=== PATIENT | male | born 1960 | race African-American/Black ===

== ENCOUNTER → 2018-03-28 | Outpatient (CLI) | payer OTHER ==
[2018-03-28 13:14] LABS: HEMATOCRIT 25.7 % (37.9-51.0); HEMOGLOBIN 8.1 g/dL (13.5-17.0); MEAN CORPUSCULAR HEMOGLOBIN 18.3 pg (27.0-33.4); MEAN CORPUSCULAR HGB CONC 31.4 g/dL (32.0-36.0); PLATELET COUNT 180 10^3/uL (150-450); RED BLOOD COUNT 4.42 10^6/uL (4.35-5.55); RED CELL DISTRIBUTION WIDTH 16.9 % (11.5-14.0); WHITE BLOOD COUNT 6.6 10^3/uL (4.0-10.5)
[2018-03-28 13:15] LABS: APPEARANCE,URINE CLEAR; BILIRUBIN,URINE NEGATIVE (NEGATIVE); COLOR,URINE YELLOW; GLUCOSE, URINE NEGATIVE (NEGATIVE); KETONES,URINE NEGATIVE (NEGATIVE); LEUKOCYTE ESTERASE,URINE SMALL (NEGATIVE); NITRITE,URINE NEGATIVE (NEGATIVE); PROTEIN,URINE 100 mg/dL (NEGATIVE); UROBILINOGEN,URINE NEGATIVE mg/dL (<2.0)
[2018-03-28 13:25] LABS: MEAN CORPUSCULAR VOLUME 58 fl (80-97)
[2018-03-28 13:34] LABS: ALANINE AMINOTRANSFERASE 18 U/L (21-72); ALBUMIN 4.5 g/dL (3.5-5.0); ALKALINE PHOSPHATASE 43 U/L (38-126); ANION GAP 10 (5-19); ASPARTATE AMINO TRANSFERASE 15 U/L (17-59); BILIRUBIN,DIRECT 0.1 mg/dL (0.0-0.4); BILIRUBIN,TOTAL 0.5 mg/dL (0.2-1.3); BLOOD UREA NITROGEN 72 mg/dL (7-20); CALCIUM 8.9 mg/dL (8.4-10.2); CARBON DIOXIDE 22 mmol/L (22-30); CHLORIDE 109 mmol/L (98-107); GLUCOSE 86 mg/dL (75-110); PHOSPHORUS 6.2 mg/dL (2.5-4.5); POTASSIUM 5.6 mmol/L (3.6-5.0); SODIUM 140.6 mmol/L (137-145); TOTAL PROTEIN 6.7 g/dL (6.3-8.2)
[2018-03-28 14:34] LABS: ABSOLUTE LYMPHOCYTES# (MANUAL) 1.1 10^3/uL (0.5-4.7); ABSOLUTE MONOCYTES # (MANUAL) 0.1 10^3/uL (0.1-1.4); ABSOLUTE NEUTROPHILS# (MANUAL) 5.2 10^3/uL (1.7-8.2); BASOPHILS % (MANUAL) 0 % (0-2); EOSINOPHILS % (MANUAL) 2 % (0-6); LYMPHOCYTES % (MANUAL) 17 % (13-45); MONOCYTES % (MANUAL) 2 % (3-13); NUCLEATED RED BLOOD CELLS 1 /100 WBC (0); SEGMENTED NEUTROPHILS % (MAN) 79 % (42-78); TOTAL CELLS COUNTED 100
[2018-03-28 14:35] LABS: ANISOCYTOSIS 1+; HYPOCHROMASIA 2+; OVALOCYTES 2+; PLATELET COMMENT ADEQUATE; POIKILOCYTOSIS 3+; SCHISTOCYTES 1+; TEAR DROP CELLS 1+
[2018-03-28 14:36] LABS: ACANTHOCYTES SLIGHT; BURR CELLS SLIGHT
[2018-03-29 11:00] LABS: PATH REVIEW PATHOLOGIST REVIEWED
== END ==
LOC: OD 12:24
PROVIDERS: ATTEND Internal Medicine Nephrology
DX: N18.5 Chronic kidney disease, stage 5 (principal); M10.00 Idiopathic gout, unspecified site; E87.5 Hyperkalemia
CPT/HCPCS: 36415; 80053; 81001; 83970; 84100; 85025

== ENCOUNTER → 2018-03-31 | Outpatient (CLI) | payer OTHER | LOC: OD 12:47 | PROVIDERS: ATTEND Internal Medicine Nephrology | DX: E87.5 Hyperkalemia (principal) | CPT/HCPCS: 36415; 84132 ==

== ENCOUNTER → 2018-04-26 | Outpatient (CLI) | payer OTHER ==
[2018-04-26 13:21] LABS: HEMATOCRIT 24.6 % (37.9-51.0); MEAN CORPUSCULAR HEMOGLOBIN 18.6 pg (27.0-33.4); MEAN CORPUSCULAR HGB CONC 31.8 g/dL (32.0-36.0); PLATELET COUNT 189 10^3/uL (150-450); RED BLOOD COUNT 4.21 10^6/uL (4.35-5.55); RED CELL DISTRIBUTION WIDTH 16.7 % (11.5-14.0); WHITE BLOOD COUNT 5.8 10^3/uL (4.0-10.5)
[2018-04-26 13:38] LABS: ANION GAP 11 (5-19); BLOOD UREA NITROGEN 91 mg/dL (7-20); CALCIUM 8.9 mg/dL (8.4-10.2); CARBON DIOXIDE 21 mmol/L (22-30); CHLORIDE 107 mmol/L (98-107); GLUCOSE 83 mg/dL (75-110); IRON(TIBC) 66.8 ug/dL (49-181); PHOSPHORUS 7.3 mg/dL (2.5-4.5); POTASSIUM 5.6 mmol/L (3.6-5.0); SODIUM 139.1 mmol/L (137-145)
[2018-04-26 13:56] LABS: HEMOGLOBIN 7.8 g/dL (13.5-17.0)
[2018-04-26 13:57] LABS: MEAN CORPUSCULAR VOLUME 59 fl (80-97)
[2018-04-26 14:19] LABS: APPEARANCE,URINE CLEAR; BILIRUBIN,URINE NEGATIVE (NEGATIVE); COLOR,URINE YELLOW; GLUCOSE, URINE NEGATIVE (NEGATIVE); KETONES,URINE NEGATIVE (NEGATIVE); LEUKOCYTE ESTERASE,URINE NEGATIVE (NEGATIVE); NITRITE,URINE NEGATIVE (NEGATIVE); PROTEIN,URINE 100 mg/dL (NEGATIVE); URINE SPECIFIC GRAVITY 1.011; UROBILINOGEN,URINE NEGATIVE mg/dL (<2.0)
[2018-04-26 15:04] LABS: UR PRO/CREAT RATIO RESULT 0.7 mg/mg (0.0-0.2); URINE CREATININE 144.7 mg/dL (22-328); URINE PROTEIN 98.3 mg/dL (<12)
[2018-04-27 11:33] LABS: PATH REVIEW PATHOLOGIST REVIEWED
[2018-04-27 13:22] LABS: A/G RATIO 1.2 (0.7-1.7); ALBUMIN 2 3.6 g/dL (2.9-4.4); ALPHA-2-GLOBULIN 2 0.9 g/dL (0.4-1.0); BETA GLOBULINS 0.9 g/dL (0.7-1.3); GLOBULIN TOTAL 3.1 g/dL (2.2-3.9); MONOCLONAL SPIKE Not Observed g/dL (Not Observ); PROTEIN TOTAL SERUM 6.7 g/dL (6.0-8.5)
== END ==
LOC: OD 12:44
PROVIDERS: ATTEND Internal Medicine Nephrology
DX: N18.3 Chronic kidney disease, stage 3 (moderate) (principal); D63.1 Anemia in chronic kidney disease; E87.5 Hyperkalemia; R80.9 Proteinuria, unspecified
CPT/HCPCS: 36415; 80048; 81001; 82570; 82728; 83540; 83550; 83970; 84100; 84156; 84165; 85027

== ENCOUNTER → 2018-04-28 | Outpatient (CLI) | payer OTHER | LOC: OD 10:44 | PROVIDERS: ATTEND Internal Medicine Nephrology | DX: E87.5 Hyperkalemia (principal) | CPT/HCPCS: 36415; 84132 ==

== ENCOUNTER → 2018-05-17 | Outpatient (CLI) | payer OTHER ==
[2018-05-17 16:02] LABS: HEMATOCRIT 25.3 % (37.9-51.0); MEAN CORPUSCULAR HEMOGLOBIN 18.8 pg (27.0-33.4); MEAN CORPUSCULAR HGB CONC 31.8 g/dL (32.0-36.0); MEAN CORPUSCULAR VOLUME 59 fl (80-97); PLATELET COUNT 186 10^3/uL (150-450); RED BLOOD COUNT 4.28 10^6/uL (4.35-5.55); RED CELL DISTRIBUTION WIDTH 17.6 % (11.5-14.0); WHITE BLOOD COUNT 6.5 10^3/uL (4.0-10.5)
== END ==
LOC: OD 14:15
PROVIDERS: ATTEND Internal Medicine Nephrology
DX: N18.5 Chronic kidney disease, stage 5 (principal); D63.1 Anemia in chronic kidney disease
CPT/HCPCS: 36415; 85027

== ENCOUNTER → 2018-05-19 | Outpatient (CLI) | payer OTHER ==
[2018-05-19 16:27] LABS: HEMATOCRIT 24.4 % (37.9-51.0); MEAN CORPUSCULAR HEMOGLOBIN 18.4 pg (27.0-33.4); MEAN CORPUSCULAR VOLUME 59 fl (80-97); PLATELET COUNT 194 10^3/uL (150-450); RED BLOOD COUNT 4.11 10^6/uL (4.35-5.55); WHITE BLOOD COUNT 4.8 10^3/uL (4.0-10.5)
[2018-05-19 16:29] LABS: APPEARANCE,URINE CLEAR; BILIRUBIN,URINE NEGATIVE (NEGATIVE); COLOR,URINE YELLOW; GLUCOSE, URINE NEGATIVE (NEGATIVE); KETONES,URINE NEGATIVE (NEGATIVE); LEUKOCYTE ESTERASE,URINE NEGATIVE (NEGATIVE); NITRITE,URINE NEGATIVE (NEGATIVE); PROTEIN,URINE 100 mg/dL (NEGATIVE); URINE SPECIFIC GRAVITY 1.011; UROBILINOGEN,URINE NEGATIVE mg/dL (<2.0)
[2018-05-19 16:38] LABS: ALANINE AMINOTRANSFERASE 6 U/L (21-72); ALBUMIN 4.4 g/dL (3.5-5.0); ALKALINE PHOSPHATASE 41 U/L (38-126); ANION GAP 15 (5-19); ASPARTATE AMINO TRANSFERASE 11 U/L (17-59); BILIRUBIN,DIRECT 0.3 mg/dL (0.0-0.4); BILIRUBIN,TOTAL 0.6 mg/dL (0.2-1.3); BLOOD UREA NITROGEN 87 mg/dL (7-20); CALCIUM 9.2 mg/dL (8.4-10.2); CARBON DIOXIDE 19 mmol/L (22-30); CHLORIDE 106 mmol/L (98-107); GLUCOSE 115 mg/dL (75-110); IRON(TIBC) 85.1 ug/dL (49-181); PHOSPHORUS 6.4 mg/dL (2.5-4.5); POTASSIUM 4.9 mmol/L (3.6-5.0); SODIUM 139.8 mmol/L (137-145); TOTAL PROTEIN 6.6 g/dL (6.3-8.2)
[2018-05-19 17:36] LABS: HEMOGLOBIN 7.6 g/dL (13.5-17.0)
== END ==
LOC: OD 15:40
PROVIDERS: ATTEND Internal Medicine Nephrology
DX: N18.5 Chronic kidney disease, stage 5 (principal); E87.5 Hyperkalemia; D64.9 Anemia, unspecified
CPT/HCPCS: 36415; 80053; 81001; 82728; 83540; 83550; 83970; 84100; 85027

== ENCOUNTER 2018-07-07 07:55 | Outpatient (CLI) | payer OTHER ==
[~2018-07-07 07:55] MED LIST: FERRIC CARBOXYMALTOSE 750 MG in NORMAL SALINE 250 ML IV PRN
[2018-07-07 09:10] VITALS: BP 158/80
== END 2018-07-07 09:57 | disposition home or self-care (01) ==
LOC: II 07:55 → 5TH 08:00 → II 09:57
PROVIDERS: ATTEND Internal Medicine Nephrology
DX: D50.9 Iron deficiency anemia, unspecified (principal)
CPT/HCPCS: 96365; J7050; J1439

== ENCOUNTER 2018-07-14 07:47 | Outpatient (CLI) | payer OTHER ==
[2018-07-14 08:36] VITALS: BP 137/77
== END 2018-07-14 09:41 | disposition home or self-care (01) ==
LOC: II 07:47 → 5TH 07:50 → II 09:41
PROVIDERS: ATTEND Internal Medicine Nephrology
PROC: 3E033GC Introduction of Other Therapeutic Substance into Peripheral Vein, Percutaneous Approach (ICD-10-PCS; principal; 2018-07-14)
DX: D50.8 Other iron deficiency anemias (principal)
CPT/HCPCS: 96365; J7050; J1439

== ENCOUNTER → 2018-07-27 | Outpatient (CLI) | payer OTHER ==
[2018-07-27 12:52] LABS: ABSOLUTE BASOPHILS # (AUTO) 0.1 10^3/uL (0.0-0.2); ABSOLUTE EOSINOPHILS # (AUTO) 0.2 10^3/uL (0.0-0.6); ABSOLUTE LYMPHOCYTES (AUTO) 0.6 10^3/uL (0.5-4.7); ABSOLUTE MONOCYTES (AUTO) 0.4 10^3/uL (0.1-1.4); ABSOLUTE NEUT (AUTO) 4.3 10^3/uL (1.7-8.2); HEMATOCRIT 29.5 % (37.9-51.0); HEMOGLOBIN 8.9 g/dL (13.5-17.0); LYMPHOCYTES % (AUTO) 11.2 % (13-45); MEAN CORPUSCULAR HEMOGLOBIN 18.3 pg (27.0-33.4); MEAN CORPUSCULAR HGB CONC 30.3 g/dL (32.0-36.0); MEAN CORPUSCULAR VOLUME 61 fl (80-97); MONOCYTES % (AUTO) 7.1 % (3-13); PLATELET COUNT 199 10^3/uL (150-450); RED BLOOD COUNT 4.87 10^6/uL (4.35-5.55); RED CELL DISTRIBUTION WIDTH 19.3 % (11.5-14.0); SEGMENTED NEUTROPHILS % (AUTO) 76.7 % (42-78); TOTAL CELLS COUNTED % (AUTO) 100 %; WHITE BLOOD COUNT 5.6 10^3/uL (4.0-10.5)
[2018-07-27 13:11] LABS: APPEARANCE,URINE SLIGHTLY-CLOUDY; BILIRUBIN,URINE NEGATIVE (NEGATIVE); COLOR,URINE YELLOW; GLUCOSE, URINE NEGATIVE (NEGATIVE); KETONES,URINE NEGATIVE (NEGATIVE); LEUKOCYTE ESTERASE,URINE NEGATIVE (NEGATIVE); NITRITE,URINE NEGATIVE (NEGATIVE); PROTEIN,URINE 100 mg/dL (NEGATIVE); URINE SPECIFIC GRAVITY 1.012; UROBILINOGEN,URINE NEGATIVE mg/dL (<2.0)
[2018-07-27 13:12] LABS: ALANINE AMINOTRANSFERASE 19 U/L (21-72); ALBUMIN 4.3 g/dL (3.5-5.0); ALKALINE PHOSPHATASE 36 U/L (38-126); ANION GAP 15 (5-19); ASPARTATE AMINO TRANSFERASE 14 U/L (17-59); BILIRUBIN,DIRECT 0.3 mg/dL (0.0-0.4); BILIRUBIN,TOTAL 0.5 mg/dL (0.2-1.3); BLOOD UREA NITROGEN 93 mg/dL (7-20); CALCIUM 10.2 mg/dL (8.4-10.2); CARBON DIOXIDE 22 mmol/L (22-30); CHLORIDE 105 mmol/L (98-107); GLUCOSE 82 mg/dL (75-110); IRON(TIBC) 70.7 ug/dL (49-181); PHOSPHORUS 7.7 mg/dL (2.5-4.5); POTASSIUM 4.8 mmol/L (3.6-5.0); SODIUM 142.3 mmol/L (137-145)
[2018-07-27 13:16] LABS: ANISOCYTOSIS 2+; HYPOCHROMASIA 3+; OVALOCYTES 2+; PLATELET COMMENT ADEQUATE; PLATELET LARGE PRESENT; POIKILOCYTOSIS 2+; SCHISTOCYTES 2+; TARGET CELLS SLIGHT
[2018-07-27 13:33] LABS: UR PRO/CREAT RATIO RESULT 0.7 mg/mg (0.0-0.2); URINE CREATININE 242.3 mg/dL (22-328); URINE PROTEIN 163.1 mg/dL (<12)
== END ==
LOC: OD 12:21
PROVIDERS: ATTEND Internal Medicine Nephrology
DX: I12.0 Hypertensive chronic kidney disease with stage 5 chronic kidney disease or end stage renal disease (principal); N18.5 Chronic kidney disease, stage 5; E87.5 Hyperkalemia; D64.0 Hereditary sideroblastic anemia
CPT/HCPCS: 36415; 80053; 81001; 82570; 82728; 83540; 83550; 83970; 84100; 84156; 85025

== ENCOUNTER → 2018-09-08 | Outpatient (CLI) | payer OTHER ==
[2018-09-08 12:06] LABS: HEMATOCRIT 27.8 % (37.9-51.0); HEMOGLOBIN 8.6 g/dL (13.5-17.0); MEAN CORPUSCULAR HEMOGLOBIN 18.7 pg (27.0-33.4); MEAN CORPUSCULAR HGB CONC 30.9 g/dL (32.0-36.0); MEAN CORPUSCULAR VOLUME 61 fl (80-97); PLATELET COUNT 185 10^3/uL (150-450); RED BLOOD COUNT 4.59 10^6/uL (4.35-5.55); RED CELL DISTRIBUTION WIDTH 19.4 % (11.5-14.0); WHITE BLOOD COUNT 5.9 10^3/uL (4.0-10.5)
[2018-09-08 12:22] LABS: ANION GAP 14 (5-19); CALCIUM 9.7 mg/dL (8.4-10.2); CARBON DIOXIDE 22 mmol/L (22-30); CHLORIDE 104 mmol/L (98-107); GLUCOSE 86 mg/dL (75-110); POTASSIUM 4.5 mmol/L (3.6-5.0)
[2018-09-08 12:29] LABS: BLOOD UREA NITROGEN 119 mg/dL (7-20)
== END ==
LOC: OD 11:27
PROVIDERS: ATTEND Internal Medicine Nephrology
DX: I12.0 Hypertensive chronic kidney disease with stage 5 chronic kidney disease or end stage renal disease (principal); N18.5 Chronic kidney disease, stage 5; N25.0 Renal osteodystrophy; D63.1 Anemia in chronic kidney disease; E87.2 Acidosis
CPT/HCPCS: 36415; 80048; 83735; 83970; 84100; 85027

== ENCOUNTER 2018-09-19 00:43 | Emergency (ER) | payer OTHER ==
[2018-09-19 00:57] VITALS: BP 178/92
== END 2018-09-19 04:46 | disposition left against medical advice (07) ==
LOC: ER 00:43
DX: Z53.21 Procedure and treatment not carried out due to patient leaving prior to being seen by health care provider (principal)

== ENCOUNTER → 2018-09-19 | Outpatient (CLI) | payer OTHER ==
[2018-09-19 12:29] LABS: ABSOLUTE EOSINOPHILS # (AUTO) 0.3 10^3/uL (0.0-0.6); ABSOLUTE LYMPHOCYTES (AUTO) 1.1 10^3/uL (0.5-4.7); ABSOLUTE MONOCYTES (AUTO) 0.5 10^3/uL (0.1-1.4); ABSOLUTE NEUT (AUTO) 4.2 10^3/uL (1.7-8.2); BASOPHILS % (AUTO) 0.6 % (0-2); EOSINOPHILS % (AUTO) 4.5 % (0-6); HEMATOCRIT 27.7 % (37.9-51.0); HEMOGLOBIN 8.6 g/dL (13.5-17.0); LYMPHOCYTES % (AUTO) 17.7 % (13-45); MEAN CORPUSCULAR HEMOGLOBIN 18.8 pg (27.0-33.4); MEAN CORPUSCULAR VOLUME 61 fl (80-97); MONOCYTES % (AUTO) 8.8 % (3-13); PLATELET COUNT 190 10^3/uL (150-450); RED BLOOD COUNT 4.56 10^6/uL (4.35-5.55); RED CELL DISTRIBUTION WIDTH 19.8 % (11.5-14.0); SEGMENTED NEUTROPHILS % (AUTO) 68.4 % (42-78); TOTAL CELLS COUNTED % (AUTO) 100 %; WHITE BLOOD COUNT 6.1 10^3/uL (4.0-10.5)
[2018-09-19 12:47] LABS: ALBUMIN 4.5 g/dL (3.5-5.0); ANION GAP 15 (5-19); BLOOD UREA NITROGEN 115 mg/dL (7-20); CALCIUM 10.6 mg/dL (8.4-10.2); CARBON DIOXIDE 22 mmol/L (22-30); CHLORIDE 101 mmol/L (98-107); GLUCOSE 83 mg/dL (75-110); IRON(TIBC) 42.5 ug/dL (49-181); PHOSPHORUS 8.7 mg/dL (2.5-4.5); POTASSIUM 4.3 mmol/L (3.6-5.0); SODIUM 137.6 mmol/L (137-145)
[2018-09-19 12:48] LABS: ANISOCYTOSIS 2+; HYPOCHROMASIA 3+; POLYCHROMASIA SLIGHT
[2018-09-19 12:49] LABS: OVALOCYTES 2+; PLATELET COMMENT ADEQUATE; POIKILOCYTOSIS 3+; SCHISTOCYTES 1+; TARGET CELLS SLIGHT; TEAR DROP CELLS 1+
[2018-09-20 07:37] LABS: HEPATITIS BE ANTIGEN Negative (Negative); HEPATITIS C VIRUS AB <0.1 s/co ratio (0.0-0.9); HEPATITS B SURFACE ANTIGEN Negative (Negative)
[2018-09-20 11:33] LABS: HEPATITIS B CORE AB TOT Negative (Negative); HEPATITIS B SURFACE AB QUANT 272.1 mIU/mL (Immunity>9)
== END ==
LOC: OD 11:17
PROVIDERS: ATTEND Internal Medicine Nephrology
DX: I12.0 Hypertensive chronic kidney disease with stage 5 chronic kidney disease or end stage renal disease (principal); N18.5 Chronic kidney disease, stage 5; R80.9 Proteinuria, unspecified; E87.5 Hyperkalemia; E87.2 Acidosis; D63.1 Anemia in chronic kidney disease; N25.0 Renal osteodystrophy
CPT/HCPCS: 36415; 80069; 82728; 83540; 83550; 84466; 85025; 86317; 86704; 86803; 86804; 87340; 87350

== ENCOUNTER 2018-09-21 07:18 | Day surgery (SDC) | payer OTHER ==
[~2018-09-21 07:18] MED LIST changes: +CEFAZOLIN 1 GM/D5W RTU 1 GM/50 ML RTUPB IV ONE; +CEFAZOLIN 1 GM/D5W RTU 1 GM/50 ML RTUPB IV PRN; -FERRIC CARBOXYMALTOSE 750 MG in NORMAL SALINE 250 ML IV PRN
[2018-09-21 08:21] LABS: ABSOLUTE EOSINOPHILS # (AUTO) 0.2 10^3/uL (0.0-0.6); ABSOLUTE LYMPHOCYTES (AUTO) 0.8 10^3/uL (0.5-4.7); ABSOLUTE MONOCYTES (AUTO) 0.5 10^3/uL (0.1-1.4); ABSOLUTE NEUT (AUTO) 4.1 10^3/uL (1.7-8.2); BASOPHILS % (AUTO) 0.9 % (0-2); EOSINOPHILS % (AUTO) 4.1 % (0-6); HEMATOCRIT 27.5 % (37.9-51.0); HEMOGLOBIN 8.6 g/dL (13.5-17.0); LYMPHOCYTES % (AUTO) 14.8 % (13-45); MEAN CORPUSCULAR HEMOGLOBIN 18.8 pg (27.0-33.4); MEAN CORPUSCULAR HGB CONC 31.1 g/dL (32.0-36.0); MEAN CORPUSCULAR VOLUME 61 fl (80-97); MONOCYTES % (AUTO) 8.9 % (3-13); PLATELET COUNT 155 10^3/uL (150-450); RED BLOOD COUNT 4.55 10^6/uL (4.35-5.55); RED CELL DISTRIBUTION WIDTH 20.1 % (11.5-14.0); SEGMENTED NEUTROPHILS % (AUTO) 71.3 % (42-78); TOTAL CELLS COUNTED % (AUTO) 100 %; WHITE BLOOD COUNT 5.7 10^3/uL (4.0-10.5)
[2018-09-21 08:34] LABS: ANION GAP 15 (5-19); BLOOD UREA NITROGEN 118 mg/dL (7-20); CARBON DIOXIDE 22 mmol/L (22-30); CHLORIDE 102 mmol/L (98-107); GLUCOSE 95 mg/dL (75-110); POTASSIUM 4.2 mmol/L (3.6-5.0); SODIUM 138.7 mmol/L (137-145)
[2018-09-21 08:42] LABS: PLATELET COMMENT ADEQUATE; POIKILOCYTOSIS 2+
[2018-09-21 08:43] LABS: ANISOCYTOSIS 2+; OVALOCYTES 2+; TEAR DROP CELLS SLIGHT
[2018-09-21 08:44] LABS: TARGET CELLS 1+
--- NOTE | 2018-09-21 08:57 | EKG REPORT ---
SEVERITY:- ABNORMAL ECG - SINUS BRADYCARDIA 56. PROBABLE LEFT VENTRICULAR HYPERTROPHY NONSPECIFIC ST-T CHANGES LATERAL LEADS : Confirmed by: Seferino Stern MD 21-Sep-2018 08:56:22
[2018-09-21] MEDS ORDERED: FENTANYL CITRATE INJ/PF 100 MCG/2 ML AMPUL ONE (11:00)
[2018-09-21] MEDS ORDERED: MORPHINE SULFATE 10 MG/ML INJ ONE (11:01)
[2018-09-21] MEDS ORDERED: ONDANSETRON HCL INJ/PF 4 MG/2 ML SDV ONE (11:01)
[2018-09-21] MEDS ORDERED: MIDAZOLAM 2 MG/2 ML INJ ONE (11:01)
[2018-09-21] MEDS ORDERED: PROPOFOL INJ 200 MG/20 ML VIAL IV ONE (11:01)
[2018-09-21] MEDS ORDERED: DEXAMETHASONE SOD PHOSPHATE INJ 4 MG/1 ML VIAL ONE (11:01)
[2018-09-21] MEDS ORDERED: BACITRACIN INJ 50,000 UNIT VIAL ONE (11:05)
[2018-09-21] MEDS ORDERED: LIDOCAINE 0.5% INJ-PF (5 MG/ML) 50 ML SDV ONE (11:05)
[2018-09-21] MEDS ORDERED: BUPIVACAINE HCL 0.25 % INJ/PF (2.5 MG/1 ML) 30 ML VIAL ONE (11:05)
[2018-09-21] MEDS ORDERED: HEPARIN SOD (PORCINE) 1,000 UNIT/ML 10 ML VIAL ONE (11:23)
[2018-09-21] MEDS ORDERED: MORPHINE SULFATE 10 MG/ML INJ IV PRN (11:56)
[2018-09-21] MEDS ORDERED: DIPHENHYDRAMINE HCL 50 MG/ML VIAL IV PRN (11:56)
[2018-09-21] MEDS ORDERED: FENTANYL CITRATE INJ/PF 100 MCG/2 ML AMPUL IV PRN ×3 (11:56)
[2018-09-21] MEDS ORDERED: MEPERIDINE HCL/PF INJ 25 MG/1 ML DISP.SYRIN IV PRN (11:56)
[2018-09-21] MEDS ORDERED: PROMETHAZINE HCL INJ 25 MG/1 ML VIAL IV PRN ×2 (11:56)
[2018-09-21] MEDS ORDERED: GLYCOPYRROLATE 1 MG/5 ML VIAL ONE (12:02)
[2018-09-21] MEDS ORDERED: ROCURONIUM BROMIDE INJ 50 MG/5 ML VIAL IV ONE (12:02)
[2018-09-21] MEDS ORDERED: SUCCINYLCHOLINE CHLORIDE INJ 200 MG/10 ML VIAL ONE (12:02)
--- NOTE | 2018-09-21 13:13 | Discharge Summary ---
Discharge Summary (SDC) - Discharge Final Diagnosis: #1 end-stage renal disease needing dialysis. 2. Depression. 3. Beta thalassemia. 4. Hypertension. Date of Surgery: 09/21/18 Discharge Date: 09/21/18 Condition: Good Treatment or Instructions: Discharge home [after recovery per ASU criteria]. Diet , [renal],as tolerated, when fully awake advance as tolerated. Activities within moderation encouraged. Follow up in my office by appointment in about [1 week]. Call for appointment. Leave wounds [covered], [keep clean and dry, until office visit in 1 week]. Hold of on school/work [until evaluation in office]. Meds per med rec. Percocet. May shower [in 48 hrs], [try to keep operated area as dry as possible]. Prescriptions: Oxycodone HCl/Acetaminophen [Percocet 5-325 mg Tablet] 1 tab PO ASDIR PRN #15 tab PRN Reason: Referrals: OMI MAZARIEGOS MD [Primary Care Provider] - Discharge Diet: Other (Comments) - Renal. Respiratory Treatments at Home: Deep Breathing/Coughing Discharge Activity: Activity As Tolerated Report the Following to Your Physician Immediately: Shortness of Breath, Unusual Bleeding
--- NOTE | 2018-09-21 13:19 | Operative Report ---
Operative Report DATE OF SURGERY: 09/21/18 PREOPERATIVE DIAGNOSIS: #1 end-stage renal disease needing dialysis. 2. Depre ssion. 3. Beta thalassemia. 4. Hypertension. POSTOPERATIVE DIAGNOSIS: #1 end-stage renal disease needing dialysis. 2. Depression. 3. Beta thalassemia. 4. Hypertension. OPERATION: 1. Laparoscopic abdominal exploration. 2. Insertion of peritoneal dialysis catheter under laparoscopic guidance. SURGEON: KAREN HUANG BREAD DISTRIBUTOR: None. ANESTHESIA: GA TISSUE REMOVED OR ALTERED: Not applicable. COMPLICATIONS: None. ESTIMATED BLOOD LOSS: 10 mL. INTRAOPERATIVE FINDINGS: Of satisfactory and safe access into the peritoneal cavity. The catheter placement was well down in the pelvis. Easy ingress of 1 L of heparinized solution and egress of about 700 mils. 2-300 mils left intentionally. Exploration of the abdomen showed considerable fat in the sigmoid epiploicae. The omentum was actually relatively small and well out of the pelvis. PROCEDURE: After obtaining informed consent and going over the procedure with [the patient and his family], he was taken to the operating room, [he was] anesthetized and intubated. The abdomen was prepped and draped in the usual sterile fashion. After the universal timeout, in which it was verified that the patient received IV antibiotic, the procedure commenced. The topographical location for the peritoneal dialysis catheter was sketched by applying it to the anterior abdominal wall. The reference point was the pubic symphysis the coil of the catheter, just beneath this level. In this way the position for the cuffs and the external catheter exit were ascertained and marked. The catheter was now replaced in antibiotic containing solution. An entry into the abdomen was sketched just to the right of the midline and transversely in the epigastrium. Local anesthesia was infiltrated. A 1.5 cm, transverse incision was made with a [15 blade scalpel]. Dissection now proceeded to the medial aspect of the right rectus sheath. This was opened and the muscle gently reflected. The posterior rectus sheath and peritoneum were opened between hemostats and entry was gained to the peritoneal cavity. This allowed introduction of a 5 mm laparoscopic port. The abdomen was now ins ufflated with carbon dioxide up to a maximum pressure of 12 mm of mercury. The camera was inserted and a good view gained of the abdomen. Photographs were taken. Local anesthesia was now infiltrated and an incision made in respect to the curve of the catheter. A 1 cm transverse incision was made at this point and dissection proceeded down to the rectus sheath. This was opened and a Veress needle on a reducing sleeve were were now introduced through the rectus muscle and the manipulated down to about 4 cm inferior to the incision. The peritoneum was now entered and the Veress needle removed. The internal cannula was now placed under direct vision. A swan neck peritoneal dialysis catheter was now placed on a stylette. Great care was taken to keep the orientation in reference to the white line on the catheter. It was now inserted into the peritoneal cavity under direct vision, through the introducer. As the catheter entered the abdomen the stylette was slowly withdrawn allowing it to assume its normal orientation and shape within the peritoneal cavity. Both the stylet and introducer were removed so as to place the internal cuff about 3 cm from the entry point of the peritoneal cavity, and within the rectus sheath. This was verified with respect to the incision. The external curve of the catheter was allowed to form precisely at the level of the incision. Externally the catheter was affixed to a Luna stylette which was now used to tunnel the catheter in the subcutaneous tissues to its exit site where it was now used to exit the skin about 2.5 cm from the external cuff. The catheter orientation and position and, particularly the 2 cuffs of the catheter were verified. Once this was done the external portion of the catheter was affixed to a Leur lock adapter and connected to a sterile IV tubing. This allowed introduction of 1 L of heparinized saline into the peritoneal cavity via the catheter. This occurred with brisk and free flow of fluid into the peritoneal cavity. Once the entire liter had been infused, the bag was now placed beneath the level of the patient and very satisfactory outflow was observed. With this in place, the camera and the catheter were removed and abdomen desufflated. The subcutaneous tissue in each incision was closed with interrupted 3-0 PDS. The skin in each incision was closed using interrupted and continuous sutures of 4-0 Monocryl. Once about 700 mils of the Infusaid had been passively removed from the abdomen, the catheter was flushed with 10 mL of heparinized solution and capped. The bio a patch was applied at the exit site. Benzoin was applied and Steri-Strips used to reinforce each of the wounds. It was also used to help anchor the Biopatch. It was also used to anchor the main catheter so that any external pressure would not dislodge the catheter. Dry gauze and tape applied and the procedure concluded.
[2018-09-21 15:11] VITALS: BP 134/85
== END 2018-09-21 14:55 | disposition home or self-care (01) ==
LOC: OROUT 07:18
PROVIDERS: ATTEND Surgery
DX: I12.0 Hypertensive chronic kidney disease with stage 5 chronic kidney disease or end stage renal disease (principal); N18.6 End stage renal disease; E78.5 Hyperlipidemia, unspecified; F32.9 Major depressive disorder, single episode, unspecified; M10.9 Gout, unspecified; D56.1 Beta thalassemia; R01.1 Cardiac murmur, unspecified; D64.9 Anemia, unspecified; E66.9 Obesity, unspecified; Z87.891 Personal history of nicotine dependence; Z79.82 Long term (current) use of aspirin; Z79.899 Other long term (current) drug therapy; E53.9 Vitamin B deficiency, unspecified
CPT/HCPCS: 36415; 82962; 85025; 80048; 93005; 93010; 00790; 49324; J2250; J3490 ×4; J0690; J1100; J3010; J1644; J2270; J0330; J2405; J2704; J1642; 790

== ENCOUNTER 2018-09-28 15:58 | Emergency (ER) | payer OTHER ==
[2018-09-28] MEDS ORDERED: LIDOCAINE 5% (700 MG) TRANSDERMAL ADH..PATCH TP ONE (17:00)
[2018-09-28] MEDS ORDERED: ACETAMINOPHEN 325 MG TABLET PO ONE (17:00)
--- NOTE | 2018-09-28 17:07 | ER Document Report ---
ED Neck/Back Problem - General Chief Complaint: Hip Pain Stated Complaint: LEFT LEG PAIN Time Seen by Provider: 09/28/18 17:00 Primary Care Provider: OMI MAZARIEGOS MD [Primary Care Provider] - Follow up as needed Mode of Arrival: Ambulatory Information source: Patient Notes: 58-year-old male presents to ED for complaint of low back pain radiating across the left buttocks and down the left leg. He states he has a history of chronic back pain but this pain going across his buttocks and down his leg started about 2 weeks ago. He states he is also just recently got a peritoneal dialysis catheter placed so that he can start on peritoneal dialysis at home. Patient denies any loss of control of bowel bladder, no saddle anesthesia, loss of sensation or control of lower extremities. He states he continues to have the low back pain also. TRAVEL OUTSIDE OF THE [place] IN LAST 30 DAYS: No - HPI Patient complains to provider of: Pain, Lower back - Radiating across the left buttocks and down the left leg Onset: Other - Chronic low back pain sciatic pain started 2 weeks ago Onset: Chronic Timing: Still present Quality of pain: Burning, Sharp Severity: Moderate Pain Level: 3 Recent injury: No Associated symptoms: Radiation to leg, Lower back pain Exacerbated by: Nothing Relieved by: Nothing Similar symptoms previously: Yes Recently seen / treated by doctor: Yes - Related Data Allergies/Adverse Reactions: No Known Allergies Allergy (Verified 09/28/18 16:13) Past Medical History - General Information source: Patient - Social History Smoking Status: Former Smoker Chew tobacco use (# tins/day): No Frequency of alcohol use: None Drug Abuse: None Lives with: Family Family History: Hyperlipidemia, Hypertension Patient has suicidal ideation: No Patient has homicidal ideation: No - Past Medical History Cardiac Medical History: Reports: Hx Hypercholesterolemia, Hx Hypertension Pulmonary Medical History: Reports: None EENT Medical History: Reports: None Neurological Medical History: Reports: None Endocrine Medical History: Reports: None. Denies: Hx Diabetes Mellitus Type 1, Hx Diabetes Mellitus Type 2 Renal/ Medical History: Reports: Hx End Stage Renal Disease, Hx Kidney Stones - 5 or 10 years ago, Hx Peritoneal Dialysis, Hx Renal Insufficiency - Patient does not know what his baseline creatinine is Malignancy Medical History: Reports None GI Medical History: Reports: None Musculoskeletal Medical History: Reports Hx Arthritis - knees, Reports Hx Gout Skin Medical History: Reports None Psychiatric Medical History: Reports: Hx Depression Traumatic Medical History: Reports: None Infectious Medical History: Reports: None Past Surgical History: Reports: Hx Kidney (Renal Surgery), Hx Orthopedic Surgery - Carpal tunnel release right wrist. Gout surgery on both feet. - Immunizations Hx Diphtheria, Pertussis, Tetanus Vaccination: Yes Review of Systems - Review of Systems Constitutional: No symptoms reported EENT: No symptoms reported Cardiovascular: No symptoms reported Respiratory: No symptoms reported Gastrointestinal: No symptoms reported Genitourinary: No symptoms reported Male Genitourinary: No symptoms reported Musculoskeletal: Back pain - Radiates down the left leg Skin: No symptoms reported Hematologic/Lymphatic: No symptoms reported Neurological/Psychological: No symptoms reported -: Yes All other systems reviewed and negative Physical Exam - Vital signs Vitals: Temp Pulse Resp BP Pulse Ox 97.9 F 60 20 150/83 H 98 09/28/18 16:18 09/28/18 16:18 09/28/18 16:18 09/28/18 16:18 09/28/18 16:18 Interpretation: Normal - General General appearance: Appears well, Alert - HEENT Head: Normocephalic, Atraumatic Eyes: Normal Pupils: PERRL - Respiratory Respiratory status: No respiratory distress Chest status: Nontender Breath sounds: Normal Chest palpation: Normal - Cardiovascular Rhythm: Regular Heart sounds: Normal auscultation Murmur: No - Abdominal Inspection: Normal Distension: No distension Bowel sounds: Normal Tenderness: Nontender. No: Tender - No pulsating masses Organomegaly: No organomegaly. No: Mass - Back Back: Normal, Tender, Vertebra tenderness Notes: No signs or symptoms of cauda equina, no loss control of bowel bladder, no saddle anesthesia, no loss of control or sensation to the lower extremities. - Extremities General upper extremity: Normal inspection, Nontender, Normal color, Normal ROM, Normal temperature General lower extremity: Normal inspection, Nontender, Normal color, Normal ROM, Normal temperature, Normal weight bearing. No: Francisco's sign - Neurological Neuro grossly intact: Yes Cognition: Normal Orientation: AAOx4 Caesar Coma Scale Eye Opening: Spontaneous [place] Coma Scale Verbal: Oriented Caesar Coma Scale Motor: Obeys Commands [place] Coma Scale Total: 15 Speech: Normal Motor strength normal: LUE, RUE, LLE, RLE Sensory: Normal - Psychological Associated symptoms: Normal affect, Normal mood - Skin Skin Temperature: Warm Skin Moisture: Dry Skin Color: Normal Course - Re-evaluation Re-evalutation: 09/28/18 17:39 X-ray report discussed with patient and written report given to patient to follow-up with his primary care doctor. His x-rays showed arthritis, degene rative disc disease and spondylisis the patient was treated with Tylenol and a Lidoderm patch. He was given a prescription for the Lidoderm patches. He was instructed on use of ice packs warm packs and back exercises. He was instructed to follow-up with his primary care doctor for further treatment. Patient was discharged home. Patient verbalized understanding and agreement with treatment plan. After performing a Medical Screening Examination, I estimate there is LOW risk for EXPANDING OR RUPTURED ABDOMINAL AORTIC ANEURYSM, CAUDA EQUINA SYNDROME, EPIDURAL MASS LESION, or HERNIATED DISK CAUSING SEVERE SPINAL STENOSIS, thus I consider the discharge disposition reasonable. I have reevaluated this patient multiple times and no significant life threatening changes are noted. The patient and I have discussed the diagnosis and risks, and we agree with discharging home and close follow-up. We also discussed returning to the Emergency Department immediately if new or worsening symptoms occur with the understanding that symptoms and presentations can change. We have discussed the symptoms which are most concerning (e.g., saddle anesthesia, urinary or bowel incontinence or retention, changing or worsening pain) that necessitate immediate return. - Vital Signs Vital signs: Temp Pulse Resp BP Pulse Ox 97.9 F 60 20 150/83 H 98 09/28/18 16:18 09/28/18 16:18 09/28/18 16:18 09/28/18 16:18 09/28/18 16:18 - Diagnostic Test Radiology reviewed: Image reviewed, Reports reviewed Discharge - Discharge Clinical Impression: Low back pain Qualifiers: Chronicity: chronic Back pain laterality: bilateral Sciatica presence: with sciatica Sciatica laterality: sciatica of left side Qualified Code(s): M54.42 - Lumbago with sciatica, left side; G89.29 - Other chronic pain Condition: Stable Disposition: HOME, SELF-CARE Additional Instructions: LOW BACK PAIN: Three out of every four people will have an episode of disabling back pain during their lifetime. Most commonly the pain is due to straining of the muscles and ligaments in the low back. Usual treatment includes: (1) Rest on a firm surface. Avoid lying on your stomach. (2) Ice pack the painful area. After a few days, gentle heat may be used int ermittently to relax the area, or ice packs can be continued. (3) Medication may be needed -- muscle relaxers and antiinflammatory medicines are commonly used. (4) As the back improves, exercises are prescribed to strengthen the back and abdominal muscles. Your doctor will advise you on the proper care for your back at each stage in your recovery. You may be better in a few days -- or healing may take several weeks. If new symptoms of a "herniated disc" (radiation of pain, numbness, or tingling down the back of the leg or weakness in the leg) occur, you should be re-examined. Further testing may be necessary. ICE PACKS: Apply ice packs frequently against the painful area. Many different schedules are recommended, such as "20 minutes on, 20 minutes off" or "one hour ice, two hours rest." If you need to work, you may need to go longer between ice treatments. You should plan to have the area ice packed AT LEAST one fourth of the time. The ice should be applied over the wrap, tape, or splint, or over a layer of cloth -- not directly against the skin. Some ice bags have a built-in cloth and can be put directly on the skin. WARM PACKS: After approximately two days, apply gentle heat (such as a heating pad or hot water bottle) for about 20 to 30 minutes about every two hours -- at least four times daily. Warmth and elevation will help you make a more rapid recovery, and will ease the pain considerably. Do not use HOT heat, and never apply heat for longer than 30 minutes. The continuous heat can invisibly damage skin and muscles -- even when no burn is seen on the surface. Damaged muscles can make you MORE sore. Acetaminophen Acetaminophen may be taken for pain relief or fever control. It's much safer than aspirin, offering a wider range of "safe" dosages. It is safe during . Some brand names are Tylenol, Panadol, Datril, Anacin 3, Tempra, and Liquiprin. Acetaminophen can be repeated every four hours. The following are maximum recommended dosages: WEIGHT Dose Drops Elixir Chewable(80mg) (LBS.) drprs=droppers tsp=teaspoon 6 40 mg .4 ml (1/2) 6-11 80 mg .8 ml (full) 1/2 tsp 1 tab 12-16 120 mg 1 1/2 drprs 3/4 tsp 1 1/2 tabs 17-23 160 mg 2 drprs 1 tsp 2 tabs 24-30 240 mg 3 drprs 1 1/2 tsp 3 tabs 30-35 320 mg 2 tsp 4 tabs 36-41 360 mg 2 1/4 tsp 4 1/2 tabs 42-47 400 mg 2 1/2 tsp 5 tabs 48-53 480 mg 3 tsp 6 tabs 54-59 520 mg 3 1/4 tsp 6 1/2 tabs 60-64 560 mg 3 1/2 tsp 7 tabs 65-70 600 mg 3 3/4 tsp 7 1/2 tabs 71-76 640 mg 4 tsp 8 tabs 77-82 720 mg 4 1/2 tsp 9 tabs 83-88 800 mg 5 tsp 10 tabs >89 pounds or adults 650 mg to 900 mg Acetaminophen can be repeated every four hours. Maximum daily dose not to exceed 4000 mg. These maximum recommended dosages are slightly higher than the dosages written on the product container, but these dosages are very safe and well below the toxic dosage for acetaminophen. Stretching Exercises for the Back The physician has recommended that you begin stretching exercises for your back. These are often used even while the back is painful. However, you should notify the physician if the activities seem to increase your pain. PELVIC TILT: Lie flat on your back with knees bent. Tighten your stomach and buttock muscles so it flattens your lower back against the floor. Hold 10 seconds. Repeat 10 times, twice daily. KNEE RAISE: Lying on the back with knees bent, raise one knee to your chest, then the other. Hold both knees against the chest 10 seconds, then lower one knee at a time. Repeat 10 times, twice daily. PARTIAL TRUNK RAISE: Lie face down, arms at your sides. Keeping your waist on the floor, use your arms raise your chest up. Support yourself on your elbows for 30 seconds. Repeat twice daily, increasing the time to two minutes as you recover. FOLLOW-UP CARE: If you have been referred to a physician for follow-up care, call the physicians office for an appointment as you were instructed or within the next two days. If you experience worsening or a significant change in your symptoms, notify the physician immediately or return to the Emergency Department at any time for re-evaluation. Prescriptions: Lidocaine [Lidoderm 5% (700 mg) Transdermal Patch] 1 patch TP DAILY #30 adh..patch Forms: Elevated Blood Pressure Referrals: OMI MAZARIEGOS MD [Primary Care Provider] - Follow up in 3-5 days
--- NOTE | 2018-09-28 17:29 | RADIOLOGY REPORT (SQ) ---
EXAM DESCRIPTION: L SPINE WHOLE COMPLETED DATE/TIME: 09/28/2018 5:12 pm REASON FOR STUDY: low back pain with sciatica COMPARISON: None. NUMBER OF VIEWS: Five views including obliques. TECHNIQUE: AP, lateral, oblique, and sacral radiographic images acquired of the lumbar spine. LIMITATIONS: None. FINDINGS: MINERALIZATION: Normal. SEGMENTATION: Normal. No transitional anatomy. ALIGNMENT: Normal. VERTEBRAE: Maintained height. No fracture or worrisome bone lesion. DISCS: Disc spaces are narrowed from L3-S1. Small marginal osteophytes present. POSTERIOR ELEMENTS: Pedicles and facets are intact. No pars defect or posterior arch defects. HARDWARE: None in the spine. PARASPINAL SOFT TISSUES: Normal. PELVIS: Intact as visualized. No fractures or worrisome bone lesions. SI joints intact. OTHER: No other significant finding. IMPRESSION: Degenerative disc disease and spondylosis. TECHNICAL DOCUMENTATION: JOB ID: [id number] [employer]- All Rights Reserved Reading location - IP/workstation name: [email or web address]
[2018-09-28 17:38] VITALS: BP 168/85
== END 2018-09-28 17:40 | disposition home or self-care (01) ==
LOC: ER 15:58
DX: M54.42 Lumbago with sciatica, left side (principal); E78.00 Pure hypercholesterolemia, unspecified; I12.0 Hypertensive chronic kidney disease with stage 5 chronic kidney disease or end stage renal disease; N18.6 End stage renal disease; Z99.2 Dependence on renal dialysis
CPT/HCPCS: 72110; 99283

== ENCOUNTER 2020-03-22 19:48 | Inpatient (IN) | payer OTHER, MEDICARE ==
[2020-03-22 20:31] LABS: ABSOLUTE LYMPHOCYTES (AUTO) 0.6 10^3/uL (0.5-4.7); ABSOLUTE MONOCYTES (AUTO) 0.3 10^3/uL (0.1-1.4); ABSOLUTE NEUT (AUTO) 4.4 10^3/uL (1.7-8.2); BASOPHILS % (AUTO) 0.9 % (0-2); EOSINOPHILS % (AUTO) 0.3 % (0-6); HEMATOCRIT 36.5 % (37.9-51.0); HEMOGLOBIN 11.5 g/dL (13.5-17.0); LYMPHOCYTES % (AUTO) 11.4 % (13-45); MEAN CORPUSCULAR HEMOGLOBIN 19.5 pg (27.0-33.4); MEAN CORPUSCULAR HGB CONC 31.4 g/dL (32.0-36.0); MEAN CORPUSCULAR VOLUME 62 fl (80-97); MONOCYTES % (AUTO) 5.2 % (3-13); RED BLOOD COUNT 5.87 10^6/uL (4.35-5.55); RED CELL DISTRIBUTION WIDTH 18.7 % (11.5-14.0); SEGMENTED NEUTROPHILS % (AUTO) 82.2 % (42-78); TOTAL CELLS COUNTED % (AUTO) 100 %; WHITE BLOOD COUNT 5.4 10^3/uL (4.0-10.5)
[2020-03-22 20:42] LABS: ALBUMIN 3.8 g/dL (3.5-5.0); ALKALINE PHOSPHATASE 31 U/L (38-126); ANION GAP 13 (5-19); ASPARTATE AMINO TRANSFERASE 41 U/L (17-59); BILIRUBIN,DIRECT 0.5 mg/dL (0.0-0.4); BILIRUBIN,TOTAL 0.8 mg/dL (0.2-1.3); BLOOD UREA NITROGEN 84 mg/dL (7-20); CALCIUM 9.6 mg/dL (8.4-10.2); CARBON DIOXIDE 26 mmol/L (22-30); CHLORIDE 98 mmol/L (98-107); CREATINE KINASE 608 U/L (55-170); GLUCOSE 98 mg/dL (75-110); POTASSIUM 4.2 mmol/L (3.6-5.0); TOTAL PROTEIN 6.5 g/dL (6.3-8.2)
[2020-03-22 20:56] LABS: PLATELET COUNT 70 10^3/uL (150-450)
[2020-03-22 20:58] LABS: ANISOCYTOSIS 1+; PLATELET COMMENT DECREASED
[2020-03-22 21:00] LABS: OVALOCYTES 1+; POIKILOCYTOSIS 1+; SCHISTOCYTES SLIGHT; TARGET CELLS SLIGHT
[2020-03-22 21:01] LABS: TEAR DROP CELLS SLIGHT
--- NOTE | 2020-03-22 21:02 | RADIOLOGY REPORT (SQ) ---
EXAM DESCRIPTION: Site: CHEST SINGLE VIEW RP: XR CHEST 1 VIEW CLINICAL HISTORY: 59 years Male; shortness of breath; +EMS covid antigen; COMPARISON: 05/31/2013 FINDINGS: Lungs: Lungs are clear, with no focal infiltrate, pneumothorax, or pleural effusion. Mediastinum: Mediastinum is within normal limits for this positioning. Bones: Bony structures are unremarkable. IMPRESSION: 1. No acute pulmonary findings.
[2020-03-22 21:29] LABS: APPEARANCE,URINE SLIGHTLY-CLOUDY; BILIRUBIN,URINE NEGATIVE (NEGATIVE); COLOR,URINE YELLOW; GLUCOSE, URINE NEGATIVE (NEGATIVE); KETONES,URINE NEGATIVE (NEGATIVE); LEUKOCYTE ESTERASE,URINE NEGATIVE (NEGATIVE); NITRITE,URINE NEGATIVE (NEGATIVE); PROTEIN,URINE 100 mg/dL (NEGATIVE); URINE SPECIFIC GRAVITY 1.014; UROBILINOGEN,URINE NEGATIVE mg/dL (<2.0)
--- NOTE | 2020-03-22 22:03 | ER Document Report ---
ED General - General Chief Complaint: Shortness Of Breath Stated Complaint: DIFFICULTY BREATHING,FATIGUE,CHILLS Time Seen by Provider: 03/22/20 21:27 Primary Care Provider: Simone CONTRERAS MD [Primary Care Provider] - Follow up as needed TRAVEL OUTSIDE OF THE [place] IN LAST 30 DAYS: No - HPI Context: Chief Complaint: [Dyspnea] [This is a 59-year-old male with a history of end-stage renal disease, on home dialysis, presenting with a chief complaint of shortness of breath. Patient states he has had symptoms for approximately 4 days. Patient states he is also fatigued, is having chills and has had a fever as high as 101.2 at home. Patient states that his son tested positive for Covid recently and that his tested positive for Covid 4 days ago. Patient states that he got tested 4 days ago as well but was negative at that time. Patient came in by EMS and the rapid antigen test turned out to be positive. Patient states that his sense of smell and sense of taste are both diminished. Patient states he also has lost his appetite. Patient states his fatigue is so severe that he has been laying in the bed for the past 2 days and that even "getting out of bed to brush my teeth feels like hard work." ] History obtained from [patient] Symptoms began:[4 days ago] Onset: [Gradual] Timing: [Gradual] Quality: [Sensations of dyspnea with minimal effort and severe fatigue] Intensity: [Severe per patient] Location: [Respiratory system] Radiation: [Denies] [The pain does not migrate to a new location.] Aggravating factors: Any exertion Relieving factors: [none] Positive SOB [Denies] nausea [Denies] vomiting [Denies] sweats Positive fever [Denies] cough [Denies] calf or leg swelling or pain - Related Data Allergies/Adverse Reactions: No Known Allergies Allergy (Verified 03/22/20 20:16) Past Medical History - General Information source: Patient - Social History Smoking Status: Former Smoker Frequency of alcohol use: None Drug Abuse: None Family History: Hyperlipidemia, Hypertension Patient has homicidal ideation: No - Past Medical History Cardiac Medical History: Reports: Hx Hypercholesterolemia, Hx Hypertension Endocrine Medical History: Denies: Hx Diabetes Mellitus Type 1, Hx Diabetes Mellitus Type 2 Renal/ Medical History: Reports: Hx End Stage Renal Disease, Hx Kidney Stones - 5 or 10 years ago, Hx Peritoneal Dialysis, Hx Renal Insufficiency - Patient does not know what his baseline creatinine is Musculoskeletal Medical History: Reports Hx Arthritis - knees, Reports Hx Gout Psychiatric Medical History: Reports: Hx Depression Past Surgical History: Reports: Hx Kidney (Renal Surgery), Hx Orthopedic Surgery - Carpal tunnel release right wrist. Gout surgery on both feet. - Immunizations Hx Diphtheria, Pertussis, Tetanus Vaccination: Yes Review of Systems - Review of Systems Notes: Review of systems as below unless otherwise stated in HPI. CONSTITUTIONAL Positive fever, positive chills. Positive fatigue EYES [No] eye pain. ENT [No] URI symptoms, [No] sore throat, [No] ear pain. CARDIOVASCULAR [No] chest pain, [No] palpitations, [No] edema. RESPIRATORY Positive cough, positive SOB, [No] wheezing. GASTROINTESTINAL [No] abdominal pain, [No] nausea, [No] Diarrhea, [No] Vomiting, [No] con stipation, [No] melena, [No] rectal bleeding. GENITOURINARY [No] dysuria, [No] urinary frequency, [No] hematuria, [No] urinary urgency MUSCULOSKELETAL [No] Back pain. SKIN [No] Rash. NEUROLOGIC [No] Headache, [No] recent seizures, [No] paralysis,[No] parathesias. ENDOCRINE [No] polyuria. HEMO/LYMPATIC [No] easy brusing PSYCHIATRIC [No] depression. Physical Exam - Vital signs Vitals: Temp Pulse Resp BP Pulse Ox 98.7 F 71 24 H 158/97 H 97 03/22/20 19:50 03/22/20 19:50 03/22/20 19:50 03/22/20 19:50 03/22/20 19:50 - Notes Notes: CONSTITUTIONAL [Vital signs reviewed, Patient appears fatigued but not toxic, Alert and oriented X 3, Normal stature.] HEAD [Atraumatic, Normocephalic.] EYES [Eyes are normal to inspection, No discharge from eyes, Extraocular muscles intact, Sclera are normal, Conjunctiva are normal.] ENT [External ears normal to inspection, Nose examination normal, Mouth normal to inspection.] NECK [Normal ROM, No jugular venous distention, No meningeal signs, ] RESPIRATORY CHEST [Chest is nontender, Breath sounds normal, No respiratory distress.] CARDIOVASCULAR [RRR, No murmurs, Normal S1 S2, No rub, No gallop.] ABDOMEN [Abdomen is nontender, No pulsatile masses, No other masses, Bowel sounds normal, No distension, No peritoneal signs, No hernias.] BACK [There is no CVA Tenderness, There is no tenderness to palpation, Normal inspection.] UPPER EXTREMITY [Inspection normal, No cyanosis, No clubbing, No edema, LOWER EXTREMITY [Inspection normal, No cyanosis, No clubbing, No edema, No calf tenderness, NEURO [No focal motor deficits, No focal sensory deficits, Speech normal.] SKIN [Skin is warm, Skin is dry, Skin is normal color.] PSYCHIATRIC [Normal affect. ] Course - Re-evaluation Re-evalutation: 03/22/20 23:09 Differential diagnosis: COVID-19 pneumonia, bacterial pneumonia, viral syndrome, pulmonary edema, urinary tract infection 03/23/20 00:14 MDM: Given the patient had a positive rapid antigen test by EMS, evidence of Covid pneumonia on his chest CT and a PO2 of 60 on his ABG, patient's diagnosis is most likely Covid pneumonia with hypoxia. Given that the patient has worsening dyspnea with any type of activity and is hypoxic, I believe the patient would benefit from admission and treatment for his Covid pneumonia. Results of ED MSE discussed with patient. All questions were answered. Recommendation for admission discussed with patient. Patient is amenable to being admitted. - Vital Signs Vital signs: Temp Pulse Resp BP Pulse Ox 98.7 F 71 23 H 170/97 H 95 03/22/20 19:50 03/22/20 19:50 03/22/20 20:01 03/22/20 20:01 03/22/20 20:01 - Laboratory Results Result Diagrams: 03/22/20 20:06 03/22/20 20:06 Laboratory Results Interpreted: 03/22/20 03/22/20 03/22/20 20:06 20:06 21:12 RBC 5.87 H Hgb 11.5 L Hct 36.5 L MCV 62 L MCH 19.5 L MCHC 31.4 L RDW 18.7 H Plt Count 70 L Lymph % (Auto) 11.4 L Seg Neutrophils % 82.2 H ABG pO2 ABG HCO3 ABG O2 Saturation BUN 84 H Creatinine 17.19 H Est GFR ( Amer) 3 L Est GFR (MDRD) Non-Af 3 L Direct Bilirubin 0.5 H Alkaline Phosphatase 31 L Creatine Kinase 608 H Urine Protein 100 H Urine Blood MODERATE H 03/22/20 22:48 RBC Hgb Hct MCV MCH MCHC RDW Plt Count Lymph % (Auto) Seg Neutrophils % ABG pO2 60.8 L ABG HCO3 24.2 H ABG O2 Saturation 92.1 L BUN Creatinine Est GFR ( Amer) Est GFR (MDRD) Non-Af Direct Bilirubin Alkaline Phosphatase Creatine Kinase Urine Protein Urine Blood Critical Laboratory Results Reviewed: Yes Attending or Supervising Physician who Reviewed Labs: RASHAUN ELIZABETH IV - Radiology Results Critical Radiology Results Reviewed: Yes Attending or Supervising Physician who Reviewed Radiology: RASHAUN ELIZABETH IV - EKG Interpretation by Me Additional EKG results interpreted by me: 03/22/20 22:00 EKG obtained on 03/22/2020 at 2102 hrs. was interpreted by this MD. Findings: Sinus rhythm, rate 65, borderline left axis deviation, MN interval appears to be within normal limits, P waves preceding QRS complexes, QRS complexes appear narrow, QTC is 466, there are no obvious patterns of ST segment elevation, depression or reciprocal changes seen to suggest acute myocardial ischemia or infarction. When compared to prior EKG from 09/21/2018, the gross morphology between the 2 EKGs appears unchanged. Impression: Sinus rhythm with borderline left axis deviation and nonspecific ST segments. - Consults Dr. Grover Time consulted: 00:14 Reason for consultation: 03/23/20 00:14 Covid pneumonia and hypoxia Consulted provider: will come to ER Critical Care Note - Critical Care Note Total time excluding time spent on procedures (mins): 120 - Management of Covid pneumonia with hypoxia Discharge - Discharge Clinical Impression: Pneumonia due to COVID-19 virus, Hypoxia Condition: Stable Disposition: ADMITTED INPATIENT Admitting Provider: Reilly Unit Admitted: Medical Floor Referrals: Simone CONTRERAS MD [Primary Care Provider] - Follow up as needed
[2020-03-22 23:10] LABS: ARTERIAL BLOOD BASE EXCESS 0.1 mmol/L; ARTERIAL BLOOD H2CO3 1.12 mmol/L (1.05-1.35); ARTERIAL BLOOD HCO3 24.2 mmol/L (20-24); ARTERIAL BLOOD O2 SATURATION 92.1 % (94-98); ARTERIAL BLOOD PCO2 37.1 mmHg (35-45); ARTERIAL BLOOD PH 7.43 (7.35-7.45); ARTERIAL BLOOD PO2 60.8 mmHg (80-100); ARTERIAL BLOOD TOTAL CO2 25.3 mmol/L (23-27)
[2020-03-22 23:13] LABS: ARTERIAL BLOOD FIO2 ROOM AIR
--- NOTE | 2020-03-22 23:34 | RADIOLOGY REPORT (SQ) ---
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 Technical factors: This exam was performed according to our departmental dose-optimization program, which includes automated exposure control, adjustment of the mA and/or kV according to patient size and/or use of iterative reconstruction technique. No intravenous contrast was administered. FINDINGS: Central airways are patent. Lung windows show multifocal groundglass and nodular consolidative opacity throughout both lungs, most pronounced throughout the left lower lobe. Mediastinal windows show a few mildly prominent mediastinal and bilateral hilar lymph nodes, likely reactive. Calcifications are evident about the coronary vessels, aortic valve, and thoracic aorta. There is a trace pericardial effusion. Limited evaluation of the upper abdomen reveals a small amount of upper abdominal ascites. In addition, there is a small amount of fluid located adjacent to the pancreatic tail on image 59 of series 3. The pancreatic tail does not appear significantly edematous. Soft tissue density located adjacent to the left adrenal gland on image 63 of series 3 presumably corresponds to the superior aspect of the left kidney. Likewise, there is a tiny amount of pneumoperitoneum Bone windows show no destructive osseous lesions. IMPRESSION: Multifocal nodular consolidative and groundglass opacity throughout both lungs, most pronounced throughout the left lower lobe. Overall, these lungs are most suspicious for multifocal pneumonia/viral pneumonitis. Short interval follow-up to clearing is recommended given the nodular configuration of several of the opacities (8-12 weeks). Tiny amount of pneumoperitoneum, indeterminate in etiology. Correlate for recent procedure. Otherwise, dedicated CT of the abdomen/pelvis is recommended as perforated viscus is in the differential. Small amount of upper abdominal ascites. Call report was generated for these findings. An addendum will be created once communication has been made.
[2020-03-22] MEDS ORDERED: DEXAMETHASONE SOD PHOS INJ 10 MG/1 ML VIAL IV ONE (23:57)
--- NOTE | 2020-03-23 02:12 | PDOC CONSULTATION ---
Consultation Consult Date: 03/23/20 Attending physician:: RASHAUN ELIZABETH IV Provider Consulted: SRIRAM BENEDICT Consult reason:: Acute hypoxic respiratory failure due to pneumonia from COVID- 19 infection History of Present Illness Admission Date/PCP: 03/23/20 00:24 K V RAUL CONTRERAS MD Patient complains of: Shortness of breath History of Present Illness: AMANDA HINOJOSA is a 59 year old male with a history of end-stage renal disease on peritoneal dialysis, hypertension, depression who presents to the ED with 5 days duration of generalized weakness, easy fatigability, fever and cough productive of blood-streaked sputum. Over the past 2 to 3 days he has been feeling increasingly short of breath. He states that his son tested positive for COVID-19 about a week ago and there starting to have the above symptoms he and his were tested for COVID-19 as outpatient and his tested positive while his test came back negative. Despite having a negative test result he continues to experience symptoms and today when the shortness of breath got really worse he called EMS and was brought in for further evaluation. During transport via EMS patient tested positive with a rapid kit. He denies any chest pain, palpitation, dizziness, nausea, vomiting, abdominal pain or diarrhea. He states that he has been compliant with his dialysis schedule. At the ED ABG showed hypoxemia PO2 of 60%, troponin was elevated at 0.286, EKG had no sign ificant changes. CT the chest showed multifocal groundglass opacities bilaterally concerning for possible viral pneumonia. Past Medical History Cardiac Medical History: Reports: Hyperlipidema, Hypertension Endocrine Medical History: Denies: Diabetes Mellitus Type 1, Diabetes Mellitus Type 2 Renal/ Medical History: Reports: End Stage Renal Disease Musculoskeltal Medical History: Reports: Arthritis - knees, Gout Psychiatric Medical History: Reports: Depression Hematology: Reports: Anemia - hx iron infusion 2 months ago Past Surgical History Past Surgical History: Reports: Orthopedic Surgery - Carpal tunnel release right wrist. Gout surgery on both feet. Social History Information Source: Patient Lives with: Family Smoking Status: Former Smoker Hx Recreational Drug Use: No Drugs: None - Advance Directive Resuscitation Status: Full Code Family History Family History: Hyperlipidemia, Hypertension Parental Family History Reviewed: Yes Children Family History Reviewed: Yes Sibling(s) Family History Reviewed.: Yes Medication/Allergy Home Medications: Amlodipine Besylate [Norvasc 10 mg Tablet] 10 mg PO DAILY 03/22/20 Aspirin [Aspirin 81 mg Chewable Tablet] 81 mg PO DAILY 03/22/20 Calcitriol 0.5 mcg PO DAILY 03/22/20 Cyanocobalamin (Vitamin B-12) [Vitamin B12] 2,500 mcg PO DAILY 03/22/20 Febuxostat 80 mg PO DAILY 03/22/20 Fluoxetine HCl 20 mg PO DAILY 03/22/20 Furosemide [Lasix 40 mg Tablet] 40 mg PO DAILY 03/22/20 Gabapentin [Neurontin 100 mg Capsule] 100 mg PO TID 03/22/20 Hydralazine HCl [Apresoline 50 mg Tablet] 50 mg PO TID 03/22/20 Labetalol HCl [Normodyne 200 mg Tablet] 200 mg PO TID 03/22/20 Allergies/Adverse Reactions: No Known Allergies Allergy (Verified 03/22/20 20:16) Review of Systems Constitutional: PRESENT: as per HPI Eyes: ABSENT: visual disturbances Ears: ABSENT: hearing changes Cardiovascular: PRESENT: dyspnea on exertion. ABSENT: chest pain, edema, o rthropnea, palpitations Respiratory: PRESENT: as per HPI Gastrointestinal: ABSENT: abdominal pain, constipation, diarrhea, hematemesis, hematochezia, nausea, vomiting Genitourinary: ABSENT: dysuria, hematuria Musculoskeletal: ABSENT: joint swelling Integumentary: ABSENT: rash, wounds Neurological: ABSENT: abnormal gait, abnormal speech, confusion, dizziness, focal weakness, syncope Psychiatric: ABSENT: anxiety, depression, homidical ideation, suicidal ideation Endocrine: ABSENT: cold intolerance, heat intolerance, polydipsia, polyuria Hematologic/Lymphatic: ABSENT: easy bleeding, easy bruising Physical Exam Vital Signs: Temp Pulse Resp BP Pulse Ox 98.7 F 71 23 H 170/97 H 95 03/22/20 19:50 03/22/20 19:50 03/22/20 20:01 03/22/20 20:01 03/22/20 20:01 Intake & Output 03/21/20 03/22/20 03/23/20 06:59 06:59 06:59 Weight 98 kg Additional comments: GENERAL APPEARANCE: Alert and oriented x3, on 2 L intranasal oxygen HEENT: Normocephalic and atraumatic. No scleral icterus. Moist oral mucosa NECK: Supple. No lymphadenopathy or tenderness. No carotid bruit. No JVD CHEST: Symmetric. Nontender to palpation. LUNGS: Clear with good air entry bilaterally. No wheezing or crackles HEART: Regular rate and rhythm with normal S1 and S2. No murmurs, gallops, or rubs. ABDOMEN: Has peritoneal dialysis catheter in place, soft, active bowel sounds, no direct or rebound tenderness. No organomegaly detected. EXTREMITIES: No cyanosis, clubbing, or edema. MUSCULOSKELETAL: No deformity, atrophy or swelling noted PSYCHIATRIC: Recent and remote memory is intact. Appropriate mood and affect. SKIN: Warm, dry, and well perfused. No lesions or rashes are noted. NEUROLOGIC: No focal sensory or motor deficits are noted. Results Laboratory Results: 03/22/20 20:06 03/22/20 20:06 03/22/20 03/22/20 03/22/20 20:06 20:06 21:12 WBC 5.4 RBC 5.87 H Hgb 11.5 L Hct 36.5 L MCV 62 L MCH 19.5 L MCHC 31.4 L RDW 18.7 H Plt Count 70 L Seg Neutrophils % 82.2 H Carbonic Acid HCO3/H2CO3 Ratio ABG pH ABG pCO2 ABG pO2 ABG HCO3 ABG O2 Saturation ABG Base Excess FiO2 Sodium 137.3 Potassium 4.2 Chloride 98 Carbon Dioxide 26 Anion Gap 13 BUN 84 H Creatinine 17.19 H Est GFR ( Amer) 3 L Glucose 98 Lactic Acid Calcium 9.6 Total Bilirubin 0.8 AST 41 Alkaline Phosphatase 31 L Total Protein 6.5 Albumin 3.8 Urine Color YELLOW Urine Appearance SLIGHTLY-CLOUDY Urine pH 6.0 Ur Specific [place] 1.014 Urine Protein 100 H Urine Glucose (UA) NEGATIVE Urine Ketones NEGATIVE Urine Blood MODERATE H Urine Nitrite NEGATIVE Ur Leukocyte Esterase NEGATIVE Urine WBC (Auto) 1 Urine RBC (Auto) 15 03/22/20 03/23/20 22:48 00:46 WBC RBC Hgb Hct MCV MCH MCHC RDW Plt Count Seg Neutrophils % Carbonic Acid 1.12 HCO3/H2CO3 Ratio 21:1 ABG pH 7.43 ABG pCO2 37.1 ABG pO2 60.8 L ABG HCO3 24.2 H ABG O2 Saturation 92.1 L ABG Base Excess 0.1 FiO2 ROOM AIR Sodium Potassium Chloride Carbon Dioxide Anion Gap BUN Creatinine Est GFR ( Amer) Glucose Lactic Acid 0.6 L Calcium Total Bilirubin AST Alkaline Phosphatase Total Protein Albumin Urine Color Urine Appearance Urine pH Ur Specific [place] Urine Protein Urine Glucose (UA) Urine Ketones Urine Blood Urine Nitrite Ur Leukocyte Esterase Urine WBC (Auto) Urine RBC (Auto) 03/22/20 03/22/20 20:06 20:06 Creatine Kinase 608 H Troponin I 0.286 Impressions: Chest X-Ray 03/22/20 20:12 IMPRESSION: 1. No acute pulmonary findings. Chest CT 03/22/20 22:43 IMPRESSION: Multifocal nodular consolidative and groundglass opacity throughout both lungs, most pronounced throughout the left lower lobe. Overall, these lungs are most suspicious for multifocal pneumonia/viral pneumonitis. Short interval follow-up to clearing is recommended given the nodular configuration of several of the opacities (8-12 weeks). Tiny amount of pneumoperitoneum, indeterminate in etiology. Correlate for recent procedure. Otherwise, dedicated CT of the abdomen/pelvis is recommended as perforated viscus is in the differential. Small amount of upper abdominal ascites. Call report was generated for these findings. An addendum will be created once communication has been made. Assessment and Plan - Diagnosis (1) Acute respiratory failure with hypoxia Is this a current diagnosis for this admission?: Yes Plan: Patient presents with progressive worsening of shortness of breath for the past week Has no JVD, leg swelling or sign of volume overload on imagings ABG was significant for pH/PCO2/PO2 of 7.4 3/[address] chest was notable for multifocal groundglass opacities bilaterally consistent with viral pneumonia Has a positive contact history and rapid test was positive for COVID-19 during transfer via EMS Currently requiring 2 L intranasal oxygen Continue dexamethasone 6 mg IV daily Start him on ivermectin 18 mg now and second dose to be repeated on Place him on zinc, vitamin C, vitamin D Obtain LDH, CRP, ferritin and D-dimer levels Closely monitor respiratory parameters for any sign of impending failure (2) Pneumonia due to COVID-19 virus Is this a current diagnosis for this admission?: Yes Plan: Continue management of hypoxia secondary to COVID-19 pneumonia as stated above (3) Elevated troponin Is this a current diagnosis for this admission?: Yes Plan: Serum troponin was elevated at 0.286 Likely type II non-STEMI from demand mismatch from hypoxia and end-stage renal disease EKG: No ST-T wave changes were noted Continue trending cardiac enzymes every [address] him on aspirin and high intensity statin Continue telemetry monitoring (4) Hypertension Is this a current diagnosis for this admission?: Yes Plan: Currently blood pressure is within acceptable range Continue home medications hydralazine and labetalol (5) ESRD needing dialysis Is this a current diagnosis for this admission?: Yes Plan: Patient currently on peritoneal dialysis at home At this point unable to admit patient to inpatient service due to unavailability of nephrology to start him on peritoneal dialysis In the meantime patient to be monitored at the ED using his dialysis machine Renally dose medications, avoid nephrotoxic's continue monitoring renal indicis - Time Time Spent with patient: 35 or more minutes Total Critical Time (Minutes): 40 Medications reviewed and adjusted accordingly: Yes Anticipated Discharge Disposition: Home, Self Care Anticipated Discharge Timeframe: ED patient - Inpatient Certification Based on my medical assessment, after consideration of the patient's c omorbidities, presenting symptoms, or acuity I expect that the services needed warrant INPATIENT care.: Yes I certify that my determination is in accordance with my understanding of Medicare's requirements for reasonable and necessary INPATIENT services [42 CFR 412.3e].: Yes
[2020-03-23] MEDS ORDERED: ACETAMINOPHEN 325 MG TABLET PO PRN (03:44)
[2020-03-23] MEDS ORDERED: AZITHROMYCIN 250 MG TABLET PO ONE (03:44)
[2020-03-23] MEDS ORDERED: PROMETHAZINE HCL INJ 25 MG/1 ML VIAL IV PRN (03:44)
--- NOTE | 2020-03-23 04:18 | PDOC H&P ---
History of Present Illness Admission Date/PCP: 03/23/20 00:24 Simone CHERRY MD History of Present Illness: AMANDA HINOJOSA is a 59 year old male with a history of end-stage renal disease on peritoneal dialysis, hypertension, depression who presents to the ED with 5 days duration of generalized weakness, easy fatigability, fever and cough productive of blood-streaked sputum. Over the past 2 to 3 days he has been feeling increasingly short of breath. He states that his son tested positive for COVID-19 about a week ago and there starting to have the above symptoms he and his were tested for COVID-19 as outpatient and his tested positive while his test came back negative. Despite having a negative test result he continues to experience symptoms and today when the shortness of breath got really worse he called EMS and was brought in for further evaluation. During transport via EMS patient tested positive with a rapid kit. He denies any chest pain, palpitation, dizziness, nausea, vomiting, abdominal pain or diarrhea. He states that he has been compliant with his dialysis schedule. At the ED ABG showed hypoxemia PO2 of 60%, troponin was elevated at 0.286, EKG had no significant changes. CT the chest showed multifocal groundglass opacities bilaterally concerning for possible viral pneumonia. Patient was initially to be managed at the ED until availability of nephrology service to start him on peritoneal dialysis while inpatient. ED was able to touch base with nephrology and order was placed by Dr. Cherry for initiation of peritoneal dialysis so patient is accepted to [facility] for management of acute hypoxic respiratory failure from COVID-19 pneumonia and will continue having peritoneal dialysis per nephrology order. Past Medical History Cardiac Medical History: Reports: Hyperlipidema, Hypertension Endocrine Medical History: Denies: Diabetes Mellitus Type 1, Diabetes Mellitus Type 2 Renal/ Medical History: Reports: End Stage Renal Disease Musculoskeltal Medical History: Reports: Arthritis - knees, Gout Psychiatric Medical History: Reports: Depression Hematology: Reports: Anemia - hx iron infusion 2 months ago Past Surgical History Past Surgical History: Reports: Orthopedic Surgery - Carpal tunnel release right wrist. Gout surgery on both feet. Social History Information Source: Patient Lives with: Family Smoking Status: Former Smoker Hx Recreational Drug Use: No Drugs: None - Advance Directive Resuscitation Status: Full Code Family History Family History: Hyperlipidemia, Hypertension Parental Family History Reviewed: Yes Children Family History Reviewed: Yes Sibling(s) Family History Reviewed.: Yes Medication/Allergy Home Medications: Amlodipine Besylate [Norvasc 10 mg Tablet] 10 mg PO DAILY 03/22/20 Aspirin [Aspirin 81 mg Chewable Tablet] 81 mg PO DAILY 03/22/20 Calcitriol 0.5 mcg PO DAILY 03/22/20 Cyanocobalamin (Vitamin B-12) [Vitamin B12] 2,500 mcg PO DAILY 03/22/20 Febuxostat 80 mg PO DAILY 03/22/20 Fluoxetine HCl 20 mg PO DAILY 03/22/20 Furosemide [Lasix 40 mg Tablet] 40 mg PO DAILY 03/22/20 Gabapentin [Neurontin 100 mg Capsule] 100 mg PO TID 03/22/20 Hydralazine HCl [Apresoline 50 mg Tablet] 50 mg PO TID 03/22/20 Labetalol HCl [Normodyne 200 mg Tablet] 200 mg PO TID 03/22/20 Allergies/Adverse Reactions: No Known Allergies Allergy (Verified 03/22/20 20:16) Review of Systems Constitutional: PRESENT: as per HPI Eyes: ABSENT: visual disturbances Ears: ABSENT: hearing changes Nose, Mouth, and Throat: PRESENT: sore throat. ABSENT: headache(s), mouth pain Cardiovascular: PRESENT: dyspnea on exertion. ABSENT: chest pain, edema, orthropnea, palpitations Respiratory: PRESENT: as per HPI Gastrointestinal: ABSENT: abdominal pain, constipation, diarrhea, hematemesis, hematochezia, nausea, vomiting Genitourinary: ABSENT: dysuria, hematuria Musculoskeletal: ABSENT: joint swelling Integumentary: ABSENT: rash, wounds Neurological: ABSENT: abnormal gait, abnormal speech, confusion, dizziness, focal weakness, syncope Psychiatric: ABSENT: anxiety, depression, homidical ideation, suicidal ideation Endocrine: ABSENT: cold intolerance, heat intolerance, polydipsia, polyuria Hematologic/Lymphatic: ABSENT: easy bleeding, easy bruising Physical Exam Vital Signs: Temp Pulse Resp BP Pulse Ox 98.7 F 71 28 H 126/96 H 92 03/22/20 19:50 03/22/20 19:50 03/23/20 02:00 03/22/20 22:31 03/23/20 02:00 Intake & Output 03/21/20 03/22/20 03/23/20 06:59 06:59 06:59 Weight 98 kg Additional comments: GENERAL APPEARANCE: Alert and oriented x3, on 2 L intranasal oxygen HEENT: Normocephalic and atraumatic. No scleral icterus. Moist oral mucosa NECK: Supple. No lymphadenopathy or tenderness. No carotid bruit. No JVD CHEST: Symmetric. Nontender to palpation. LUNGS: Clear with good air entry bilaterally. No wheezing or crackles HEART: Regular rate and rhythm with normal S1 and S2. No murmurs, gallops, or rubs. ABDOMEN: Has peritoneal dialysis catheter in place, soft, active bowel sounds, no direct or rebound tenderness. No organomegaly detected. EXTREMITIES: No cyanosis, clubbing, or edema. MUSCULOSKELETAL: No deformity, atrophy or swelling noted PSYCHIATRIC: Recent and remote memory is intact. Appropriate mood and affect. SKIN: Warm, dry, and well perfused. No lesions or rashes are noted. NEUROLOGIC: No focal sensory or motor deficits are noted. Results Laboratory Results: 03/22/20 20:06 03/22/20 20:06 03/22/20 03/22/20 03/22/20 20:06 20:06 21:12 WBC 5.4 RBC 5.87 H Hgb 11.5 L Hct 36.5 L MCV 62 L MCH 19.5 L MCHC 31.4 L RDW 18.7 H Plt Count 70 L Seg Neutrophils % 82.2 H Carbonic Acid HCO3/H2CO3 Ratio ABG pH ABG pCO2 ABG pO2 ABG HCO3 ABG O2 Saturation ABG Base Excess FiO2 Sodium 137.3 Potassium 4.2 Chloride 98 Carbon Dioxide 26 Anion Gap 13 BUN 84 H Creatinine 17.19 H Est GFR ( Amer) 3 L Glucose 98 Lactic Acid Calcium 9.6 Total Bilirubin 0.8 AST 41 Alkaline Phosphatase 31 L Total Protein 6.5 Albumin 3.8 Urine Color YELLOW Urine Appearance SLIGHTLY-CLOUDY Urine pH 6.0 Ur Specific [place] 1.014 Urine Protein 100 H Urine Glucose (UA) NEGATIVE Urine Ketones NEGATIVE Urine Blood MODERATE H Urine Nitrite NEGATIVE Ur Leukocyte Esterase NEGATIVE Urine WBC (Auto) 1 Urine RBC (Auto) 15 03/22/20 03/23/20 22:48 00:46 WBC RBC Hgb Hct MCV MCH MCHC RDW Plt Count Seg Neutrophils % Carbonic Acid 1.12 HCO3/H2CO3 Ratio 21:1 ABG pH 7.43 ABG pCO2 37.1 ABG pO2 60.8 L ABG HCO3 24.2 H ABG O2 Saturation 92.1 L ABG Base Excess 0.1 FiO2 ROOM AIR Sodium Potassium Chloride Carbon Dioxide Anion Gap BUN Creatinine Est GFR ( Amer) Glucose Lactic Acid 0.6 L Calcium Total Bilirubin AST Alkaline Phosphatase Total Protein Albumin Urine Color Urine Appearance Urine pH Ur Specific [place] Urine Protein Urine Glucose (UA) Urine Ketones Urine Blood Urine Nitrite Ur Leukocyte Esterase Urine WBC (Auto) Urine RBC (Auto) 03/22/20 03/22/20 20:06 20:06 Creatine Kinase 608 H Troponin I 0.286 Impressions: Chest X-Ray 03/22/20 20:12 IMPRESSION: 1. No acute pulmonary findings. Chest CT 03/22/20 22:43 IMPRESSION: Multifocal nodular consolidative and groundglass opacity throughout both lungs, most pronounced throughout the left lower lobe. Overall, these lungs are most suspicious for multifocal pneumonia/viral pneumonitis. Short interval follow-up to clearing is recommended given the nodular configuration of several of the opacities (8-12 weeks). Tiny amount of pneumoperitoneum, indeterminate in etiology. Correlate for recent procedure. Otherwise, dedicated CT of the abdomen/pelvis is recommended as perforated viscus is in the differential. Small amount of upper abdominal ascites. Call report was generated for these findings. An addendum will be created once communication has been made. Assessment and Plan - Diagnosis (1) Acute respiratory failure with hypoxia Is this a current diagnosis for this admission?: Yes Plan: Patient presents with progressive worsening of shortness of breath for the past week Has no JVD, leg swelling or sign of volume overload on imagings ABG was significant for pH/PCO2/PO2 of 7.4 3/37/[address] chest was notable for multifocal groundglass opacities bilaterally consistent with viral pneumonia Has a positive contact history and rapid test was positive for COVID-19 during transfer via EMS Currently requiring 2 L intranasal oxygen Continue dexamethasone 6 mg IV daily Start him on ivermectin 18 mg now and second dose to be repeated on Place him on zinc, vitamin C, vitamin D Obtain LDH, CRP, ferritin and D-dimer levels Closely monitor respiratory parameters for any sign of impending failure (2) Pneumonia due to COVID-19 virus Is this a current diagnosis for this admission?: Yes Plan: Continue management of hypoxia secondary to COVID-19 pneumonia as stated above (3) Elevated troponin Is this a current diagnosis for this admission?: Yes Plan: Serum troponin was elevated at 0.286 Currently denies any chest pain Likely type II non-STEMI from demand mismatch from hypoxia and end-stage renal disease EKG: No ST-T wave changes were noted Continue trending cardiac enzymes every [address] him on aspirin and high intensity statin Continue telemetry monitoring Will consider cardiology consult (4) Hypertension Is this a current diagnosis for this admission?: Yes Plan: Blood pressure was not optimally controlled with a systolic ranging in the 170s and diastolic 110s on presentation But currently blood pressure has improved and appears to be within acceptable range Will place him on his home medications adding hydralazine and labetalol with h olding parameters Closely monitor vital signs (5) ESRD needing dialysis Is this a current diagnosis for this admission?: Yes Plan: Currently patient is alert and oriented and has no uremic symptoms BUN/creatinine was 84/17.19 Serum electrolytes are within the normal limit and has no acidosis Currently no sign of volume overload Continue peritoneal dialysis per nephrology recommendation Continue monitoring serum electrolytes and volume status Renally dose medications and avoid nephrotoxic drugs (6) Overweight (BMI 25.0-29.9) Is this a current diagnosis for this admission?: Yes - Time Time Spent with patient: 35 or more minutes Total Critical Time (Minutes): 50 Medications reviewed and adjusted accordingly: Yes Anticipated Discharge Disposition: Home, Self Care Anticipated Discharge Timeframe: within 72 hours - Inpatient Certification Based on my medical assessment, after consideration of the patient's comorbi dities, presenting symptoms, or acuity I expect that the services needed warrant INPATIENT care.: Yes I certify that my determination is in accordance with my understanding of Medicare's requirements for reasonable and necessary INPATIENT services [42 CFR 412.3e].: Yes Medical Necessity: Failure to Improve With Outpatient Therapy, Significant Comorbidiites Make Outpatient Treatment Too Risky, Need Close Monitoring Due to Risk of Patient Decompensation, Need For Continuous Telemetry Monitoring, Risk of Complication if Not Cared For in Hospital Post Hospital Care: D/C or Transfer Summary
[2020-03-23 05:11] LABS: ABSOLUTE LYMPHOCYTES (AUTO) 0.5 10^3/uL (0.5-4.7); ABSOLUTE MONOCYTES (AUTO) 0.2 10^3/uL (0.1-1.4); ABSOLUTE NEUT (AUTO) 5.2 10^3/uL (1.7-8.2); BASOPHILS % (AUTO) 0.4 % (0-2); HEMATOCRIT 36.3 % (37.9-51.0); HEMOGLOBIN 11.5 g/dL (13.5-17.0); MEAN CORPUSCULAR HEMOGLOBIN 19.7 pg (27.0-33.4); MEAN CORPUSCULAR HGB CONC 31.6 g/dL (32.0-36.0); MEAN CORPUSCULAR VOLUME 62 fl (80-97); MONOCYTES % (AUTO) 2.7 % (3-13); RED BLOOD COUNT 5.84 10^6/uL (4.35-5.55); RED CELL DISTRIBUTION WIDTH 18.5 % (11.5-14.0); SEGMENTED NEUTROPHILS % (AUTO) 87.9 % (42-78); TOTAL CELLS COUNTED % (AUTO) 100 %; WHITE BLOOD COUNT 5.9 10^3/uL (4.0-10.5)
[2020-03-23 05:29] LABS: ALBUMIN 3.7 g/dL (3.5-5.0); ALKALINE PHOSPHATASE 34 U/L (38-126); ANION GAP 14 (5-19); ASPARTATE AMINO TRANSFERASE 43 U/L (17-59); BILIRUBIN,DIRECT 0.5 mg/dL (0.0-0.4); BILIRUBIN,TOTAL 0.7 mg/dL (0.2-1.3); BLOOD UREA NITROGEN 87 mg/dL (7-20); CALCIUM 9.4 mg/dL (8.4-10.2); CARBON DIOXIDE 24 mmol/L (22-30); CHLORIDE 98 mmol/L (98-107); GLUCOSE 104 mg/dL (75-110); POTASSIUM 4.4 mmol/L (3.6-5.0); TOTAL PROTEIN 6.4 g/dL (6.3-8.2)
[2020-03-23 05:31] LABS: C-REACTIVE PROTEIN 39.2 mg/L (<10.0)
[2020-03-23 05:50] LABS: PLATELET COUNT 73 10^3/uL (150-450)
[2020-03-23 05:53] LABS: ANISOCYTOSIS 1+; OVALOCYTES SLIGHT; PLATELET COMMENT DECREASED; POIKILOCYTOSIS 1+; TEAR DROP CELLS SLIGHT
[2020-03-23] MEDS: GABAPENTIN 100 MG CAPSULE PO SCH ×3 (07:04→22:44)
[2020-03-23] MEDS: HYDRALAZINE HCL 50 MG TABLET PO SCH ×3 (07:04→22:44)
[2020-03-23] MEDS: LABETALOL HCL 200 MG TABLET PO SCH ×3 (07:04→22:44)
[2020-03-23] MEDS ORDERED: FLUOXETINE HCL 20 MG CAPSULE PO SCH (10:00)
[2020-03-23] MEDS ORDERED: FLUOXETINE HCL 20 MG/5 ML UDCUP PO SCH (10:00)
[2020-03-23] MEDS: FAMOTIDINE 20 MG TABLET PO SCH ×2 (10:20→22:44)
[2020-03-23] MEDS: AMLODIPINE BESYLATE 10 MG TABLET PO SCH (10:21)
[2020-03-23] MEDS: ZINC SULFATE 220 MG CAPSULE PO SCH (10:21)
[2020-03-23] MEDS: ASPIRIN 81 MG TABLET, CHEWABLE PO SCH (10:21)
[2020-03-23] MEDS: FLUOXETINE HCL 20 MG CAPSULE PO SCH (10:21)
[2020-03-23] MEDS: CYANOCOBALAMIN (VITAMIN B-12) 1,000 MCG TABLET PO SCH (10:21)
[2020-03-23] MEDS: ASCORBIC ACID 500 MG TABLET PO SCH ×2 (10:22→17:28)
[2020-03-23] MEDS: CALCITRIOL 0.25 MCG CAPSULE PO SCH (10:22)
[2020-03-23] MEDS: DEXAMETHASONE SOD PHOS INJ 10 MG/1 ML VIAL IV SCH (10:22)
[2020-03-23] MEDS: IVERMECTIN 3 MG TABLET PO SCH (10:27)
[2020-03-23] MEDS: FEBUXOSTAT 80 MG TABLET PO SCH (10:29)
[2020-03-23] MEDS: HEPARIN SOD (PORCINE) 5,000 UNIT/ML 1 ML VIAL SUBCUT SCH ×2 (10:30→22:45)
[2020-03-23] MEDS: GENTAMICIN SULFATE 0.1% OINTMENT 15 GM TP SCH (17:27)
--- NOTE | 2020-03-23 20:31 | EKG REPORT ---
SEVERITY:- BORDERLINE ECG - SINUS RHYTHM BORDERLINE LEFT AXIS DEVIATION BORDERLINE T WAVE ABNORMALITIES : Confirmed by: Shweta Shelton MD 23-Mar-2020 20:30:00
[2020-03-23] MEDS: ATORVASTATIN CALCIUM 40 MG TABLET PO SCH (22:44)
[2020-03-24] MEDS: LABETALOL HCL 200 MG TABLET PO SCH ×3 (05:49→22:32)
[2020-03-24] MEDS: HYDRALAZINE HCL 50 MG TABLET PO SCH ×3 (05:49→22:32)
[2020-03-24] MEDS: GABAPENTIN 100 MG CAPSULE PO SCH ×3 (05:49→22:31)
[2020-03-24 07:03] LABS: ABSOLUTE LYMPHOCYTES (AUTO) 0.5 10^3/uL (0.5-4.7); ABSOLUTE MONOCYTES (AUTO) 0.3 10^3/uL (0.1-1.4); ABSOLUTE NEUT (AUTO) 7.5 10^3/uL (1.7-8.2); BASOPHILS % (AUTO) 0.6 % (0-2); HEMATOCRIT 36.5 % (37.9-51.0); HEMOGLOBIN 11.4 g/dL (13.5-17.0); LYMPHOCYTES % (AUTO) 5.6 % (13-45); MEAN CORPUSCULAR HEMOGLOBIN 19.1 pg (27.0-33.4); MEAN CORPUSCULAR HGB CONC 31.1 g/dL (32.0-36.0); MEAN CORPUSCULAR VOLUME 62 fl (80-97); MONOCYTES % (AUTO) 3.3 % (3-13); PLATELET COUNT 101 10^3/uL (150-450); RED BLOOD COUNT 5.94 10^6/uL (4.35-5.55); RED CELL DISTRIBUTION WIDTH 18.1 % (11.5-14.0); SEGMENTED NEUTROPHILS % (AUTO) 90.5 % (42-78); TOTAL CELLS COUNTED % (AUTO) 100 %; WHITE BLOOD COUNT 8.3 10^3/uL (4.0-10.5)
[2020-03-24 07:24] LABS: ALBUMIN 3.7 g/dL (3.5-5.0); ALKALINE PHOSPHATASE 33 U/L (38-126); ANION GAP 15 (5-19); ASPARTATE AMINO TRANSFERASE 44 U/L (17-59); BILIRUBIN,DIRECT 0.6 mg/dL (0.0-0.4); BILIRUBIN,TOTAL 0.8 mg/dL (0.2-1.3); BLOOD UREA NITROGEN 95 mg/dL (7-20); CALCIUM 10.1 mg/dL (8.4-10.2); CARBON DIOXIDE 25 mmol/L (22-30); CHLORIDE 98 mmol/L (98-107); GLUCOSE 137 mg/dL (75-110); POTASSIUM 4.1 mmol/L (3.6-5.0); TOTAL PROTEIN 6.4 g/dL (6.3-8.2)
[2020-03-24 08:11] LABS: ANISOCYTOSIS 2+
[2020-03-24 08:14] LABS: OVALOCYTES 1+; TARGET CELLS SLIGHT
[2020-03-24 08:15] LABS: PLATELET COMMENT DECREASED; SCHISTOCYTES SLIGHT; TEAR DROP CELLS SLIGHT
[2020-03-24] MEDS: FAMOTIDINE 20 MG TABLET PO SCH ×2 (09:15→22:31)
[2020-03-24] MEDS: DEXAMETHASONE SOD PHOS INJ 10 MG/1 ML VIAL IV SCH (09:15)
[2020-03-24] MEDS: ASPIRIN 81 MG TABLET, CHEWABLE PO SCH (09:16)
[2020-03-24] MEDS: FLUOXETINE HCL 20 MG CAPSULE PO SCH (09:16)
[2020-03-24] MEDS: ASCORBIC ACID 500 MG TABLET PO SCH ×2 (09:16→17:09)
[2020-03-24] MEDS: AZITHROMYCIN 250 MG TABLET PO SCH (09:16)
[2020-03-24] MEDS: ZINC SULFATE 220 MG CAPSULE PO SCH (09:16)
[2020-03-24] MEDS: AMLODIPINE BESYLATE 10 MG TABLET PO SCH (09:16)
[2020-03-24] MEDS: CYANOCOBALAMIN (VITAMIN B-12) 1,000 MCG TABLET PO SCH (09:16)
[2020-03-24] MEDS: FEBUXOSTAT 80 MG TABLET PO SCH (09:17)
[2020-03-24] MEDS: GENTAMICIN SULFATE 0.1% OINTMENT 15 GM TP SCH (09:18)
[2020-03-24] MEDS: HEPARIN SOD (PORCINE) 5,000 UNIT/ML 1 ML VIAL SUBCUT SCH ×2 (09:18→22:36)
[2020-03-24] MEDS: CALCITRIOL 0.25 MCG CAPSULE PO SCH (09:21)
--- NOTE | 2020-03-24 13:57 | PDOC CONSULTATION ---
Consultation Consult Date: 03/24/20 Provider Consulted: CELI ROCA Consult reason:: ESRD on PD History of Present Illness Admission Date/PCP: 03/23/20 00:24 K V RAUL CHERRY MD History of Present Illness: AMANDA HINOJOSA is a 59 year old male with history of ESRD on peritoneal dialysis using the cycler, hypertension, and hyperlipidemia who presented to the ED with 5 days history of generalized fatigue, weakness, fever, productive cough with blood-streaked sputum, and progressively worsening shortness of breath. His son and tested positive for COVID-19. A week ago he initially tested negative but the symptoms continued. He tested positive with a rapid Covid testing via EMS. Patient was also hypoxic on presentation. Initial chest CT on 03/22/2020 showed multifocal nodular consolidative and groundglass opacity throughout both lungs suspicious for multifocal pneumonia/viral pneumonitis. He is currently being treated for Covid 19 pneumonia. Patient is also on peritoneal dialysis using the cycler machine at home. His usual regimen at home include 2500 fill volume doing 4 exchanges at night and 1 midday exchange during the day. He uses mostly 1.5% dianeal solution and occasional 2.5% as needed for fluid retention. His estimated dry weight was 105.5. Upon presentation the ED doctor called Dr. Cherry who gave initial PD orders. Early this morning he had an exchange with a total PD drain volume of 6 L out of the 2500 fill volume using 2.5% so I changed his solution to 1.5%. Currently the patient is dwelling with a 1.5% dianeal solution. Patient appears to be comfortable but appears to be very tired. He does back to sleep after answering one question. He admits that he just feels fatigue and tired. He denies any abdominal pain. His PD effluent fluid is clear per nursing staff. Past Medical History Cardiac Medical History: Reports: Hyperlipidemia, Hypertension-primary Renal/ Medical History: Reports: End Stage Renal Disease Musculoskeltal Medical History: Reports: Arthritis - knees, Gout Psychiatric Medical History: Reports: Depression Hematology Medical History: Reports Anemia of Chronic Kidney Disease Past Surgical History Past Surgical History: Reports: Dialysis Access Surgery PD, Orthopedic Surgery - Carpal tunnel release right wrist. Gout surgery on both feet. Social History Information Source: [facility] Records Lives with: Family Smoking Status: Former Smoker Electronic Cigarette use?: No Frequency of Alcohol Use: None Hx Recreational Drug Use: No Drugs: None Hx Prescription Drug Abuse: No - Advance Directive Resuscitation Status: Full Code Family History Family History: Hyperlipidemia, Hypertension Parental Family History Reviewed: Yes Children Family History Reviewed: Yes Sibling(s) Family History Reviewed.: Yes Medication/Allergy Home Medications: Amlodipine Besylate [Norvasc 10 mg Tablet] 10 mg PO DAILY 03/22/20 Aspirin [Aspirin 81 mg Chewable Tablet] 81 mg PO DAILY 03/22/20 Calcitriol 0.5 mcg PO DAILY 03/22/20 Cyanocobalamin (Vitamin B-12) [Vitamin B12] 2,500 mcg PO DAILY 03/22/20 Febuxostat 80 mg PO DAILY 03/22/20 Fluoxetine HCl 20 mg PO DAILY 03/22/20 Furosemide [Lasix 40 mg Tablet] 40 mg PO DAILY 03/22/20 Gabapentin [Neurontin 100 mg Capsule] 100 mg PO TID 03/22/20 Hydralazine HCl [Apresoline 50 mg Tablet] 50 mg PO TID 03/22/20 Labetalol HCl [Normodyne 200 mg Tablet] 200 mg PO TID 03/22/20 Allergies/Adverse Reactions: No Known Allergies Allergy (Verified 03/22/20 20:16) Review of Systems All systems: reviewed and no additional remarkable complaints except as stated Review of Systems: Constitutional: ABSENT: chills, headache(s), weight gain, weight loss; admits fever, fatigue and generalized weakness Eyes: ABSENT: visual disturbances Ears: ABSENT: hearing changes Cardiovascular: ABSENT: chest pain, edema, orthropnea, palpitations Respiratory: ABSENT: hemoptysis; reports cough and dyspnea Gastrointestinal: ABSENT: abdominal pain, constipation, diarrhea, hematemesis, hematochezia, nausea, vomiting Genitourinary: ABSENT: dysuria, hematuria Musculoskeletal: ABSENT: joint swelling Integumentary: ABSENT: rash, wounds Neurological: ABSENT: abnormal gait, abnormal speech, confusion, dizziness, foc al weakness, numbness, syncope Psychiatric: ABSENT: anxiety, depression Endocrine: ABSENT: cold intolerance, heat intolerance, polydipsia, polyuria Hematologic/Lymphatic: ABSENT: easy bleeding, easy bruising, lymphadenopathy Physical Exam Vital Signs: Temp Pulse Resp BP Pulse Ox 99.0 F 60 16 108/54 L 90 L 03/24/20 10:00 03/24/20 08:06 03/24/20 08:06 03/24/20 08:06 03/24/20 08:06 Intake & Output 03/23/20 03/24/20 03/25/20 06:59 06:59 06:59 Intake Total 49538 Output Total 47492 Balance -3690 Weight 103.8 kg 95.9 kg Exam: General appearance: No acute distress, cooperative, well-developed, well- nourished, somnolent but arousable and responds appropriately Head exam: PRESENT: atraumatic, normocephalic Eye exam: PRESENT: Conjunctiva slightly pale, EOMI, PERRLA. ABSENT: conjunctival injection, scleral icterus Mouth exam: PRESENT: moist, neck supple, tongue midline Neck exam: PRESENT: full ROM. ABSENT: carotid bruit, JVD, lymphadenopathy, thyromegaly Respiratory exam: PRESENT: clear to auscultation bilaterally. ABSENT: rales, rhonchi, stridor, wheezes Cardiovascular exam: PRESENT: RRR, +S1, +S2. ABSENT: systolic murmur Pulses: PRESENT: normal radial pulses, normal dorsalis pedis pulses GI/Abdominal exam: PRESENT: normal bowel sounds, soft. ABSENT: guarding, mass, tenderness Rectal exam: Deferred Extremities exam: PRESENT: full ROM. ABSENT: calf tenderness, pedal edema Musculoskeletal: PRESENT: full ROM. ABSENT: deformity Neurological exam: PRESENT: Asleep but arousable, Oriented to person, Oriented to place, Oriented to time, reflexes normal, CN II-XII grossly intact. ABSENT: motor sensory deficit Psychiatric exam: PRESENT: appropriate affect, normal mood. ABSENT: homicidal ideation, suicidal ideation Skin exam: PRESENT: intact, dry, warm. ABSENT: rash Results Laboratory Results: 03/24/20 06:39 03/24/20 06:39 03/24/20 03/24/20 06:39 06:39 WBC 8.3 RBC 5.94 H Hgb 11.4 L Hct 36.5 L MCV 62 L MCH 19.1 L MCHC 31.1 L RDW 18.1 H Plt Count 101 L Seg Neutrophils % 90.5 H Sodium 138.2 Potassium 4.1 Chloride 98 Carbon Dioxide 25 Anion Gap 15 BUN 95 H Creatinine 18.63 H Est GFR ( Amer) 3 L Glucose 137 H Calcium 10.1 Total Bilirubin 0.8 AST 44 Alkaline Phosphatase 33 L Total Protein 6.4 Albumin 3.7 03/22/20 03/22/20 03/23/20 20:06 20:06 04:50 Creatine Kinase 608 H Troponin I 0.286 0.322 03/23/20 11:03 Creatine Kinase Troponin I 0.235 Impressions: Chest X-Ray 03/22/20 20:12 IMPRESSION: 1. No acute pulmonary findings. Chest CT 03/22/20 22:43 IMPRESSION: Multifocal nodular consolidative and groundglass opacity throughout both lungs, most pronounced throughout the left lower lobe. Overall, these lungs are most suspicious for multifocal pneumonia/viral pneumonitis. Short interval follow-up to clearing is recommended given the nodular configuration of several of the opacities (8-12 weeks). Tiny amount of pneumoperitoneum, indeterminate in etiology. Correlate for recent procedure. Otherwise, dedicated CT of the abdomen/pelvis is recommended as perforated viscus is in the differential. Small amount of upper abdominal ascites. Call report was generated for these findings. An addendum will be created once communication has been made. Assessment & Plan - Diagnosis (1) ESRD needing dialysis Is this a current diagnosis for this admission?: Yes Plan: Since we do not have a cycler machine here in the hospital we will do manual pe ritoneal dialysis . We will do 2500 fill volume x4 exchanges to be done every 6 hours using 1.5% dianeal solution unless the patient has some fluid retention then I will adjust prescription to you use 2.5% dianeal solution as needed. Do daily weights. Continue PD fluid exit site care daily. Will monitor labs including electrolytes. Will supervise PD while here in the hospital. (2) Acute respiratory failure with hypoxia Is this a current diagnosis for this admission?: Yes Plan: Currently requiring oxygen per nasal cannula only. (3) Pneumonia due to COVID-19 virus Is this a current diagnosis for this admission?: Yes Plan: Management per hospitalist. Currently on IV dexamethasone, azithromycin, vitamin C and given ivermectin. (4) Hypertension Is this a current diagnosis for this admission?: Yes Plan: Controlled. (5) Anemia in chronic kidney disease (CKD) Is this a current diagnosis for this admission?: Yes Plan: Controlled. Will give Retacrit as necessary. - Notes Notes: Thank you very much for this consultation. I will follow the patient with you.
--- NOTE | 2020-03-24 17:45 | PDOC PROGRESS REPORT ---
Subjective Date:: 03/24/20 Subjective:: Patient feels well today. He has not had much of an appetite. He is a little b it more hypoxic today. He denies any chest pains. Denies abdominal pain. He is always short of breath when on room air but actually feels well when only on just 1 L. Reason For Visit: ACUTE HYPOXIC, RESPIRATORY FAILURE, PNEUMONIA DUE Physical Exam Vital Signs: Temp Pulse Resp BP Pulse Ox 97.8 F 67 17 119/78 95 03/24/20 15:52 03/24/20 15:52 03/24/20 15:52 03/24/20 15:52 03/24/20 15:52 Intake & Output 03/23/20 03/24/20 03/25/20 06:59 06:59 06:59 Intake Total 25104 2650 Output Total 23595 2600 Balance -3690 50 Weight 103.8 kg 95.9 kg 99.6 kg General appearance: PRESENT: no acute distress, cooperative Neck exam: ABSENT: JVD Respiratory exam: PRESENT: crackles - Bilateral lung bases, symmetrical, unlabored. ABSENT: tachypnea, wheezes Cardiovascular exam: PRESENT: RRR, +S1, +S2. ABSENT: tachycardia GI/Abdominal exam: PRESENT: soft. ABSENT: rebound, rigid, tenderness Neurological exam: PRESENT: alert, awake, oriented to person, oriented to place, oriented to time Results Laboratory Results: 03/24/20 06:39 03/24/20 06:39 03/24/20 03/24/20 06:39 06:39 WBC 8.3 RBC 5.94 H Hgb 11.4 L Hct 36.5 L MCV 62 L MCH 19.1 L MCHC 31.1 L RDW 18.1 H Plt Count 101 L Seg Neutrophils % 90.5 H Sodium 138.2 Potassium 4.1 Chloride 98 Carbon Dioxide 25 Anion Gap 15 BUN 95 H Creatinine 18.63 H Est GFR ( Amer) 3 L Glucose 137 H Calcium 10.1 Total Bilirubin 0.8 AST 44 Alkaline Phosphatase 33 L Total Protein 6.4 Albumin 3.7 03/22/20 03/22/20 03/23/20 20:06 20:06 04:50 Creatine Kinase 608 H Troponin I 0.286 0.322 03/23/20 11:03 Creatine Kinase Troponin I 0.235 Impressions: Chest X-Ray 03/22/20 20:12 IMPRESSION: 1. No acute pulmonary findings. Chest CT 03/22/20 22:43 IMPRESSION: Multifocal nodular consolidative and groundglass opacity throughout both lungs, most pronounced throughout the left lower lobe. Overall, these lungs are most suspicious for multifocal pneumonia/viral pneumonitis. Short interval follow-up to clearing is recommended given the nodular configuration of several of the opacities (8-12 weeks). Tiny amount of pneumoperitoneum, indeterminate in etiology. Correlate for recent procedure. Otherwise, dedicated CT of the abdomen/pelvis is recommended as perforated viscus is in the differential. Small amount of upper abdominal ascites. Call report was generated for these findings. An addendum will be created once communication has been made. Assessment and Plan - Diagnosis (1) Pneumonia due to COVID-19 virus Is this a current diagnosis for this admission?: Yes (2) Acute respiratory failure with hypoxia Is this a current diagnosis for this admission?: Yes (3) Elevated troponin Is this a current diagnosis for this admission?: Yes (4) Hypertension Is this a current diagnosis for this admission?: Yes (5) Overweight (BMI 25.0-29.9) Is this a current diagnosis for this admission?: Yes (6) ESRD needing dialysis Is this a current diagnosis for this admission?: Yes - Plan Summary Summary: Was on room air for most of yesterday. However now he is currently on 1 L saturating in the low 90s. I was informed by the nurse that he did desaturate below 88% on room air today. He is however very comfortable. He will receive the second dose of his ivermectin tomorrow. He remains on Decadron. Continue vitamin and zinc supplements. He is receiving peritoneal dialysis today. We will try to wean back to room air if possible following dialysis. - Time Time Spent with patient: Less than 15 minutes Anticipated Discharge Disposition: Home, Self Care Anticipated Discharge Timeframe: within 48 hours
[2020-03-24] MEDS: ATORVASTATIN CALCIUM 40 MG TABLET PO SCH (22:32)
[2020-03-25] MEDS: LABETALOL HCL 200 MG TABLET PO SCH ×3 (05:47→21:20)
[2020-03-25] MEDS: GABAPENTIN 100 MG CAPSULE PO SCH ×3 (05:48→21:20)
[2020-03-25] MEDS: HYDRALAZINE HCL 50 MG TABLET PO SCH ×3 (05:48→21:20)
[2020-03-25 06:39] LABS: HEMATOCRIT 34.9 % (37.9-51.0); HEMOGLOBIN 10.9 g/dL (13.5-17.0); MEAN CORPUSCULAR HEMOGLOBIN 19.2 pg (27.0-33.4); MEAN CORPUSCULAR HGB CONC 31.1 g/dL (32.0-36.0); MEAN CORPUSCULAR VOLUME 62 fl (80-97); PLATELET COUNT 113 10^3/uL (150-450); RED BLOOD COUNT 5.65 10^6/uL (4.35-5.55); RED CELL DISTRIBUTION WIDTH 18.2 % (11.5-14.0); WHITE BLOOD COUNT 10.1 10^3/uL (4.0-10.5)
[2020-03-25 07:19] LABS: ABSOLUTE LYMPHOCYTES# (MANUAL) 0.5 10^3/uL (0.5-4.7); ABSOLUTE MONOCYTES # (MANUAL) 0.2 10^3/uL (0.1-1.4); ALBUMIN 3.4 g/dL (3.5-5.0); ALKALINE PHOSPHATASE 29 U/L (38-126); ANION GAP 15 (5-19); ASPARTATE AMINO TRANSFERASE 44 U/L (17-59); BAND NEUTROPHILS % (MANUAL) 2 % (3-5); BASOPHILS % (MANUAL) 0 % (0-2); BILIRUBIN,DIRECT 0.6 mg/dL (0.0-0.4); BILIRUBIN,TOTAL 0.8 mg/dL (0.2-1.3); BLOOD UREA NITROGEN 99 mg/dL (7-20); CALCIUM 9.7 mg/dL (8.4-10.2); CARBON DIOXIDE 25 mmol/L (22-30); CHLORIDE 94 mmol/L (98-107); EOSINOPHILS % (MANUAL) 0 % (0-6); GLUCOSE 120 mg/dL (75-110); LYMPHOCYTES % (MANUAL) 4 % (13-45); MONOCYTES % (MANUAL) 2 % (3-13); POTASSIUM 3.9 mmol/L (3.6-5.0); SEGMENTED NEUTROPHILS % (MAN) 91 % (42-78); TOTAL CELLS COUNTED 100; TOTAL PROTEIN 5.9 g/dL (6.3-8.2)
[2020-03-25 07:20] LABS: ANISOCYTOSIS 1+; HYPOCHROMASIA 2+; POLYCHROMASIA SLIGHT
[2020-03-25 07:21] LABS: OVALOCYTES 1+; PLATELET COMMENT DECREASED; POIKILOCYTOSIS 1+; SCHISTOCYTES SLIGHT; TARGET CELLS SLIGHT; TEAR DROP CELLS SLIGHT
[2020-03-25] MEDS: DEXAMETHASONE SOD PHOS INJ 10 MG/1 ML VIAL IV SCH (09:23)
[2020-03-25] MEDS: FLUOXETINE HCL 20 MG CAPSULE PO SCH (09:24)
[2020-03-25] MEDS: FAMOTIDINE 20 MG TABLET PO SCH ×2 (09:24→21:19)
[2020-03-25] MEDS: IVERMECTIN 3 MG TABLET PO SCH (09:24)
[2020-03-25] MEDS: FEBUXOSTAT 80 MG TABLET PO SCH (09:24)
[2020-03-25] MEDS: CALCITRIOL 0.25 MCG CAPSULE PO SCH (09:24)
[2020-03-25] MEDS: CYANOCOBALAMIN (VITAMIN B-12) 1,000 MCG TABLET PO SCH (09:25)
[2020-03-25] MEDS: ASPIRIN 81 MG TABLET, CHEWABLE PO SCH (09:25)
[2020-03-25] MEDS: AZITHROMYCIN 250 MG TABLET PO SCH (09:25)
[2020-03-25] MEDS: ASCORBIC ACID 500 MG TABLET PO SCH ×2 (09:25→17:20)
[2020-03-25] MEDS: AMLODIPINE BESYLATE 10 MG TABLET PO SCH (09:25)
[2020-03-25] MEDS: HEPARIN SOD (PORCINE) 5,000 UNIT/ML 1 ML VIAL SUBCUT SCH ×2 (09:25→21:20)
[2020-03-25] MEDS: GENTAMICIN SULFATE 0.1% OINTMENT 15 GM TP SCH (09:25)
[2020-03-25] MEDS: ZINC SULFATE 220 MG CAPSULE PO SCH (09:25)
--- NOTE | 2020-03-25 10:24 | PDOC PROGRESS REPORT ---
Subjective Date:: 03/25/20 Subjective:: Patient appears quite comfortable. He is taking his morning medications. He de nies any pain or discomfort. In fact the peritoneal dialysis catheter site is improved from admission and less painful. Reason For Visit: ACUTE HYPOXIC, RESPIRATORY FAILURE PNEUMONIA DUE COVID-19 End-stage renal disease on peritoneal dialysis Physical Exam Vital Signs: Temp Pulse Resp BP Pulse Ox 98.1 F 58 L 18 116/67 98 03/25/20 08:19 03/25/20 07:20 03/25/20 07:20 03/25/20 07:20 03/25/20 07:20 Intake & Output 03/24/20 03/25/20 03/26/20 06:59 06:59 06:59 Intake Total 49618 48443 Output Total 37653 8600 Balance -3690 2350 Weight 95.9 kg 98.5 kg General appearance: PRESENT: no acute distress, cooperative, well-developed. ABSENT: obese Head exam: PRESENT: atraumatic, normocephalic Eye exam: PRESENT: conjunctiva pink. ABSENT: scleral icterus Ear exam: PRESENT: normal external ear exam. ABSENT: bleeding, drainage Mouth exam: PRESENT: moist, tongue midline Respiratory exam: PRESENT: rales - Faint rales left base, symmetrical, unlabored. ABSENT: accessory muscle use, prolonged expiratory phas, rhonchi, tachypnea, wheezes Cardiovascular exam: PRESENT: RRR, +S1, +S2. ABSENT: bradycardia, diastolic murmur, irregular rhythm, systolic murmur, tachycardia GI/Abdominal exam: PRESENT: normal bowel sounds, soft, other - Peritoneal dialysis catheter in place. ABSENT: guarding, tenderness Rectal exam: PRESENT: deferred Gentrourinary exam: ABSENT: indwelling catheter Extremities exam: ABSENT: pedal edema Musculoskeletal exam: PRESENT: ambulatory, normal inspection. ABSENT: deformity, dislocation Neurological exam: PRESENT: alert, awake, oriented to person, oriented to place, oriented to time, oriented to situation, CN II-XII grossly intact. ABSENT: altered Psychiatric exam: PRESENT: appropriate affect, normal mood. ABSENT: agitated, anxious Focused psych exam: ABSENT: delusional, paranoid, restlessness Skin exam: PRESENT: dry, normal color, warm. ABSENT: rash Results Laboratory Results: 03/25/20 05:51 03/25/20 05:51 03/25/20 03/25/20 05:51 05:51 WBC 10.1 RBC 5.65 H Hgb 10.9 L Hct 34.9 L MCV 62 L MCH 19.2 L MCHC 31.1 L RDW 18.2 H Plt Count 113 L Seg Neutrophils % Not Reportable Sodium 134.4 L Potassium 3.9 Chloride 94 L Carbon Dioxide 25 Anion Gap 15 BUN 99 H Creatinine 18.60 H Est GFR ( Amer) 3 L Glucose 120 H Calcium 9.7 Total Bilirubin 0.8 AST 44 Alkaline Phosphatase 29 L Total Protein 5.9 L Albumin 3.4 L 03/22/20 03/22/20 03/23/20 20:06 20:06 04:50 Creatine Kinase 608 H Troponin I 0.286 0.322 03/23/20 11:03 Creatine Kinase Troponin I 0.235 Impressions: Chest X-Ray 03/22/20 20:12 IMPRESSION: 1. No acute pulmonary findings. Chest CT 03/22/20 22:43 IMPRESSION: Multifocal nodular consolidative and groundglass opacity throughout both lungs, most pronounced throughout the left lower lobe. Overall, these lungs are most suspicious for multifocal pneumonia/viral pneumonitis. Short interval follow-up to clearing is recommended given the nodular configuration of several of the opacities (8-12 weeks). Tiny amount of pneumoperitoneum, indeterminate in etiology. Correlate for recent procedure. Otherwise, dedicated CT of the abdomen/pelvis is recommended as perforated viscus is in the differential. Small amount of upper abdominal ascites. Call report was generated for these findings. An addendum will be created once communication has been made. Assessment and Plan - Diagnosis (1) Pneumonia due to COVID-19 virus Is this a current diagnosis for this admission?: Yes (2) Acute respiratory failure with hypoxia Is this a current diagnosis for this admission?: Yes (3) Elevated troponin Is this a current diagnosis for this admission?: Yes (4) Hypertension Qualifiers: Hypertension type: essential hypertension Qualified Code(s): I10 - Essential (primary) hypertension Is this a current diagnosis for this admission?: Yes (5) Overweight (BMI 25.0-29.9) Is this a current diagnosis for this admission?: Yes (6) ESRD needing dialysis Is this a current diagnosis for this admission?: Yes - Plan Summary Summary: (1) Pneumonia due to COVID-19 virus Is this a current diagnosis for this admission?: Yes (2) Acute respiratory failure with hypoxia Is this a current diagnosis for this admission?: Yes (3) Elevated troponin Is this a current diagnosis for this admission?: Yes (4) Hypertension Qualifiers: Hypertension type: essential hypertension Qualified Code(s): I10 - Essential (primary) hypertension Is this a current diagnosis for this admission?: Yes (5) Overweight (BMI 25.0-29.9) Is this a current diagnosis for this admission?: Yes (6) ESRD needing dialysis Is this a current diagnosis for this admission?: Yes Was on room air for most of yesterday. However now he is currently on 1 L saturating in the low 90s. I was informed by the nurse that he did desaturate below 88% on room air today. He is however very comfortable. He will receive t he second dose of his ivermectin tomorrow. He remains on Decadron. Continue vitamin and zinc supplements. He is receiving peritoneal dialysis today. We will try to wean back to room air if possible following dialysis. 03/25/2020 Acute respiratory failure with hypoxia-currently on 3 L nasal cannula. Multifactorial including the pneumonia as well as a net negative balance with his peritoneal dialysis yesterday. Pneumonia due to COVID-19 virus-continue current regimen. Received 2 doses of ivermectin. Is currently on steroids and supplements. Monitor closely. Adjust treatment plan as necessary. End-stage renal disease on peritoneal dialysis-the patient's dialysate fluid was changed to 2.5 today since he had an negative balance yesterday of over 1 L. Hopefully by switching the dialysis that he will have net positive output today. This could be affecting his breathing somewhat. We will wait and see how successful peritoneal dialysis is today before making any changes in his treat ment plan. Elevated troponin-troponin is trending down. This is more likely related to his renal failure than true coronary disease. No symptoms of acute coronary syndrome. Continue to monitor. Hypertension-excellent blood pressure control on current regimen. No changes at this time. Overweight-encourage weight loss and exercise after patient recovers from COVID- 19 pneumonia. - Time Time Spent with patient: 15-24 minutes Medications reviewed and adjusted accordingly: Yes Anticipated Discharge Disposition: Home with Home Health Anticipated Discharge Timeframe: Unknown
[2020-03-25] MEDS: ATORVASTATIN CALCIUM 40 MG TABLET PO SCH (21:20)
--- NOTE | 2020-03-25 23:20 | PDOC PROGRESS REPORT ---
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 At that time I instructed her to use a 2.5% solution in the next exchange. When I came and the patient is on the drain cycle and at the end drained about 3500 mL so I held the 2.5% and continued back on the 1.5% solution. I did change the interval and frequency of exchanges to every 5 hours because the patient's BUN is increasing. Overall the patient is in negative fluid balance. Reason For Visit: ACUTE HYPOXIC, RESPIRATORY FAILURE, PNEUMONIA DUE Physical Exam Vital Signs: Temp Pulse Resp BP Pulse Ox 98.1 F 58 L 18 116/67 98 03/25/20 08:19 03/25/20 07:20 03/25/20 07:20 03/25/20 07:20 03/25/20 07:20 Intake & Output 03/24/20 03/25/20 03/26/20 06:59 06:59 06:59 Intake Total 01362 63080 Output Total 90861 8600 Balance -3690 2350 Weight 95.9 kg 98.5 kg Exam: Deferred due to COVID-19 infection in isolation. Results Laboratory Results: 03/25/20 05:51 03/25/20 05:51 03/25/20 03/25/20 05:51 05:51 WBC 10.1 RBC 5.65 H Hgb 10.9 L Hct 34.9 L MCV 62 L MCH 19.2 L MCHC 31.1 L RDW 18.2 H Plt Count 113 L Seg Neutrophils % Not Reportable Sodium 134.4 L Potassium 3.9 Chloride 94 L Carbon Dioxide 25 Anion Gap 15 BUN 99 H Creatinine 18.60 H Est GFR ( Amer) 3 L Glucose 120 H Calcium 9.7 Total Bilirubin 0.8 AST 44 Alkaline Phosphatase 29 L Total Protein 5.9 L Albumin 3.4 L 03/22/20 03/22/20 03/23/20 20:06 20:06 04:50 Creatine Kinase 608 H Troponin I 0.286 0.322 03/23/20 11:03 Creatine Kinase Troponin I 0.235 Impressions: Chest X-Ray 03/22/20 20:12 IMPRESSION: 1. No acute pulmonary findings. Chest CT 03/22/20 22:43 IMPRESSION: Multifocal nodular consolidative and groundglass opacity throughout both lungs, most pronounced throughout the left lower lobe. Overall, these lungs are most suspicious for multifocal pneumonia/viral pneumonitis. Short interval follow-up to clearing is recommended given the nodular configuration of several of the opacities (8-12 weeks). Tiny amount of pneumoperitoneum, indeterminate in etiology. Correlate for recent procedure. Otherwise, dedicated CT of the abdomen/pelvis is recommended as perforated viscus is in the differential. Small amount of upper abdominal ascites. Call report was generated for these findings. An addendum will be created once communication has been made. Assessment & Plan - Diagnosis (1) ESRD needing dialysis Is this a current diagnosis for this admission?: Yes Plan: Since we do not have a cycler machine here in the hospital we will do manual peritoneal dialysis . We will continue the same 1.5% dianeal solution but change the frequency to every 5 hours clearance. (2) Acute respiratory failure with hypoxia Is this a current diagnosis for this admission?: Yes Plan: Currently requiring oxygen per nasal cannula only. (3) Pneumonia due to COVID-19 virus Is this a current diagnosis for this admission?: Yes Plan: Management per hospitalist. Currently on IV dexamethasone, azithromycin, vitamin C and given 2 doses of ivermectin. (4) Hypertension Qualifiers: Hypertension type: essential hypertension Qualified Code(s): I10 - Essential (primary) hypertension Is this a current diagnosis for this admission?: Yes Plan: Controlled. (5) Anemia in chronic kidney disease (CKD) Is this a current diagnosis for this admission?: Yes Plan: Controlled. Will give Retacrit as necessary. - Notes Notes: Dialysis prescription discussed with his nurse today.
[2020-03-26] MEDS: GABAPENTIN 100 MG CAPSULE PO SCH ×3 (05:45→22:26)
[2020-03-26] MEDS: LABETALOL HCL 200 MG TABLET PO SCH ×3 (05:47→22:26)
[2020-03-26] MEDS: HYDRALAZINE HCL 50 MG TABLET PO SCH ×3 (05:48→22:26)
[2020-03-26 07:17] LABS: HEMATOCRIT 33.8 % (37.9-51.0); HEMOGLOBIN 10.5 g/dL (13.5-17.0); MEAN CORPUSCULAR HEMOGLOBIN 19.1 pg (27.0-33.4); MEAN CORPUSCULAR HGB CONC 31.2 g/dL (32.0-36.0); MEAN CORPUSCULAR VOLUME 61 fl (80-97); RED BLOOD COUNT 5.51 10^6/uL (4.35-5.55); RED CELL DISTRIBUTION WIDTH 18.5 % (11.5-14.0); WHITE BLOOD COUNT 11.2 10^3/uL (4.0-10.5)
[2020-03-26 07:36] LABS: ALBUMIN 3.2 g/dL (3.5-5.0); ALKALINE PHOSPHATASE 30 U/L (38-126); ANION GAP 15 (5-19); ASPARTATE AMINO TRANSFERASE 41 U/L (17-59); BILIRUBIN,DIRECT 0.5 mg/dL (0.0-0.4); BILIRUBIN,TOTAL 0.7 mg/dL (0.2-1.3); BLOOD UREA NITROGEN 100 mg/dL (7-20); CALCIUM 9.3 mg/dL (8.4-10.2); CARBON DIOXIDE 26 mmol/L (22-30); CHLORIDE 91 mmol/L (98-107); GLUCOSE 118 mg/dL (75-110); POTASSIUM 3.9 mmol/L (3.6-5.0); TOTAL PROTEIN 5.8 g/dL (6.3-8.2)
[2020-03-26 08:04] LABS: ABSOLUTE LYMPHOCYTES# (MANUAL) 0.4 10^3/uL (0.5-4.7); ABSOLUTE MONOCYTES # (MANUAL) 0.6 10^3/uL (0.1-1.4); BASOPHILS % (MANUAL) 0 % (0-2); EOSINOPHILS % (MANUAL) 0 % (0-6); LYMPHOCYTES % (MANUAL) 2 % (13-45); MONOCYTES % (MANUAL) 5 % (3-13); SEGMENTED NEUTROPHILS % (MAN) 91 % (42-78); TOTAL CELLS COUNTED 100
[2020-03-26 08:07] LABS: OVALOCYTES 1+; PLATELET COMMENT ADEQUATE; POIKILOCYTOSIS 1+; TEAR DROP CELLS 1+
[2020-03-26 08:08] LABS: ANISOCYTOSIS 1+; TARGET CELLS SLIGHT
[2020-03-26 08:09] LABS: SCHISTOCYTES SLIGHT
[2020-03-26 08:10] LABS: HYPOCHROMASIA 1+
[2020-03-26 08:11] LABS: PLATELET COUNT 154 10^3/uL (150-450)
[2020-03-26] MEDS: FLUOXETINE HCL 20 MG CAPSULE PO SCH (09:20)
[2020-03-26] MEDS: AMLODIPINE BESYLATE 10 MG TABLET PO SCH (09:20)
[2020-03-26] MEDS: ASPIRIN 81 MG TABLET, CHEWABLE PO SCH (09:20)
[2020-03-26] MEDS: FAMOTIDINE 20 MG TABLET PO SCH ×2 (09:20→22:26)
[2020-03-26] MEDS: AZITHROMYCIN 250 MG TABLET PO SCH (09:21)
[2020-03-26] MEDS: CYANOCOBALAMIN (VITAMIN B-12) 1,000 MCG TABLET PO SCH (09:21)
[2020-03-26] MEDS: ZINC SULFATE 220 MG CAPSULE PO SCH (09:21)
[2020-03-26] MEDS: ASCORBIC ACID 500 MG TABLET PO SCH ×2 (09:21→17:57)
[2020-03-26] MEDS: CALCITRIOL 0.25 MCG CAPSULE PO SCH (09:22)
[2020-03-26] MEDS: FEBUXOSTAT 80 MG TABLET PO SCH (09:23)
[2020-03-26] MEDS: HEPARIN SOD (PORCINE) 5,000 UNIT/ML 1 ML VIAL SUBCUT SCH ×2 (09:23→22:27)
[2020-03-26] MEDS: DEXAMETHASONE SOD PHOS INJ 10 MG/1 ML VIAL IV SCH (09:23)
[2020-03-26] MEDS: GENTAMICIN SULFATE 0.1% OINTMENT 15 GM TP SCH (09:26)
--- NOTE | 2020-03-26 10:54 | PDOC PROGRESS REPORT ---
Subjective Date:: 03/26/20 Subjective:: The patient is resting in bed. No complaints of abdominal pain. He reports rosana t dialysis is going well today. Unfortunately he is up to 3 L nasal cannula oxygen to maintain saturations 90% or greater when he was down to 1 L earlier. Reason For Visit: ACUTE HYPOXIC, RESPIRATORY FAILURE, PNEUMONIA DUE Physical Exam Vital Signs: Temp Pulse Resp BP Pulse Ox 98.2 F 65 18 133/80 H 94 03/26/20 08:01 03/26/20 07:59 03/26/20 07:59 03/26/20 07:59 03/26/20 07:59 Intake & Output 03/25/20 03/26/20 03/27/20 06:59 06:59 06:59 Intake Total 75572 63092 2500 Output Total 8600 88450 2600 Balance 2350 -1950 -100 Weight 98.5 kg 102.2 kg 97.3 kg General appearance: PRESENT: no acute distress, cooperative, well-developed Head exam: PRESENT: atraumatic, normocephalic Respiratory exam: PRESENT: clear to auscultation pato, symmetrical, unlabored. ABSENT: rales, rhonchi, tachypnea, wheezes Cardiovascular exam: PRESENT: RRR, +S1, +S2. ABSENT: bradycardia, diastolic murmur, irregular rhythm, systolic murmur, tachycardia GI/Abdominal exam: PRESENT: normal bowel sounds, soft, other - Peritoneal dialysis catheter in place. ABSENT: distended, tenderness Rectal exam: PRESENT: deferred Gentrourinary exam: ABSENT: indwelling catheter Extremities exam: ABSENT: pedal edema Neurological exam: PRESENT: alert, awake, oriented to person, oriented to place, oriented to time, oriented to situation, CN II-XII grossly intact. ABSENT: a ltered Psychiatric exam: PRESENT: appropriate affect. ABSENT: agitated, anxious Focused psych exam: ABSENT: delusional, paranoid, restlessness Skin exam: PRESENT: dry, normal color, warm. ABSENT: rash Results Laboratory Results: 03/26/20 06:21 03/26/20 06:21 03/26/20 03/26/20 06:21 06:21 WBC 11.2 H RBC 5.51 Hgb 10.5 L Hct 33.8 L MCV 61 L MCH 19.1 L MCHC 31.2 L RDW 18.5 H Plt Count 154 Seg Neutrophils % Not Reportable Sodium 132.3 L Potassium 3.9 Chloride 91 L Carbon Dioxide 26 Anion Gap 15 BUN 100 H Creatinine 18.33 H Est GFR ( Amer) 3 L Glucose 118 H Calcium 9.3 Total Bilirubin 0.7 AST 41 Alkaline Phosphatase 30 L Total Protein 5.8 L Albumin 3.2 L 03/22/20 03/22/20 03/23/20 20:06 20:06 04:50 Creatine Kinase 608 H Troponin I 0.286 0.322 03/23/20 11:03 Creatine Kinase Troponin I 0.235 Impressions: Chest X-Ray 03/22/20 20:12 IMPRESSION: 1. No acute pulmonary findings. Chest CT 03/22/20 22:43 IMPRESSION: Multifocal nodular consolidative and groundglass opacity throughout both lungs, most pronounced throughout the left lower lobe. Overall, these lungs are most suspicious for multifocal pneumonia/viral pneumonitis. Short interval follow-up to clearing is recommended given the nodular configuration of several of the opacities (8-12 weeks). Tiny amount of pneumoperitoneum, indeterminate in etiology. Correlate for recent procedure. Otherwise, dedicated CT of the abdomen/pelvis is recommended as perforated viscus is in the differential. Small amount of upper abdominal ascites. Call report was generated for these findings. An addendum will be created once communication has been made. Assessment and Plan - Diagnosis (1) Pneumonia due to COVID-19 virus Is this a current diagnosis for this admission?: Yes (2) Acute respiratory failure with hypoxia Is this a current diagnosis for this admission?: Yes (3) Elevated troponin Is this a current diagnosis for this admission?: Yes (4) Hypertension Qualifiers: Hypertension type: essential hypertension Qualified Code(s): I10 - Essential (primary) hypertension Is this a current diagnosis for this admission?: Yes (5) Overweight (BMI 25.0-29.9) Is this a current diagnosis for this admission?: Yes (6) ESRD needing dialysis Is this a current diagnosis for this admission?: Yes - Plan Summary Summary: (1) Pneumonia due to COVID-19 virus Is this a current diagnosis for this admission?: Yes (2) Acute respiratory failure with hypoxia Is this a current diagnosis for this admission?: Yes (3) Elevated troponin Is this a current diagnosis for this admission?: Yes (4) Hypertension Qualifiers: Hypertension type: essential hypertension Qualified Code(s): I10 - Essential (primary) hypertension Is this a current diagnosis for this admission?: Yes (5) Overweight (BMI 25.0-29.9) Is this a current diagnosis for this admission?: Yes (6) ESRD needing dialysis Is this a current diagnosis for this admission?: Yes Was on room air for most of yesterday. However now he is currently on 1 L saturating in the low 90s. I was informed by the nurse that he did desaturate below 88% on room air today. He is however very comfortable. He will receive the second dose of his ivermectin tomorrow. He remains on Decadron. Continue vitamin and zinc supplements. He is receiving peritoneal dialysis today. We will try to wean back to room air if possible following dialysis. 03/25/2020 Acute respiratory failure with hypoxia-currently on 3 L nasal cannula. Multifactorial including the pneumonia as well as a net negative balance with his peritoneal dialysis yesterday. Pneumonia due to COVID-19 virus-continue current regimen. Received 2 doses of ivermectin. Is currently on steroids and supplements. Monitor closely. Adjust treatment plan as necessary. End-stage renal disease on peritoneal dialysis-the patient's dialysate fluid was changed to 2.5 today since he had an negative balance yesterday of over 1 L. Hopefully by switching the dialysis that he will have net positive output today. This could be affecting his breathing somewhat. We will wait and see how successful peritoneal dialysis is today before making any changes in his treatment plan. Elevated troponin-troponin is trending down. This is more likely related to his renal failure than true coronary disease. No symptoms of acute coronary syndrome. Continue to monitor. Hypertension-excellent blood pressure control on current regimen. No changes at this time. Overweight-encourage weight loss and exercise after patient recovers from COVID- 19 pneumonia. 03/26/2020 Respiratory failure with hypoxia-the patient did transiently require less oxygen but is back to 3 L nasal cannula. We will continue to monitor. His dialysis is in fact getting him into a net negative fluid balance and this may help. He does not have any known underlying COPD or asthma. Possible consideration would be oxygen at home. Pneumonia due to [id number] current regimen. Begin to wean steroids. End-stage renal disease-dialysis is now 5 times a day with a 1.5 solution. Continue to monitor intake and output. Elevated troponin-doubt true acute coronary syndrome. Trending down so no further monitoring. [id number] - Time Time Spent with patient: 15-24 minutes Medications reviewed and adjusted accordingly: Yes Anticipated Discharge Disposition: Home with Home Health Anticipated Discharge Timeframe: within 48 hours
[2020-03-26] MEDS: ATORVASTATIN CALCIUM 40 MG TABLET PO SCH (22:26)
--- NOTE | 2020-03-26 23:15 | PDOC PROGRESS REPORT ---
Subjective Date:: 03/26/20 Subjective:: Dialysis has been going well for the past 24 hours. He has a decent ultrafiltration just using 1.5% solution. He has not had any issues. He is currently dwelling PD fluid. His oxygen requirement is slightly increased at 3 L. Reason For Visit: ACUTE HYPOXIC, RESPIRATORY FAILURE, PNEUMONIA DUE Physical Exam Vital Signs: Temp Pulse Resp BP Pulse Ox 98.2 F 65 18 133/80 H 94 03/26/20 08:01 03/26/20 07:59 03/26/20 07:59 03/26/20 07:59 03/26/20 07:59 Intake & Output 03/25/20 03/26/20 03/27/20 06:59 06:59 06:59 Intake Total 67999 40406 2500 Output Total 8600 07556 2600 Balance 2350 -1950 -100 Weight 98.5 kg 102.2 kg 97.3 kg Exam: Deferred due to Covid infection. However per his nurse today exam is basically unchanged. Results Laboratory Results: 03/26/20 06:21 03/26/20 06:21 03/26/20 03/26/20 06:21 06:21 WBC 11.2 H RBC 5.51 Hgb 10.5 L Hct 33.8 L MCV 61 L MCH 19.1 L MCHC 31.2 L RDW 18.5 H Plt Count 154 Seg Neutrophils % Not Reportable Sodium 132.3 L Potassium 3.9 Chloride 91 L Carbon Dioxide 26 Anion Gap 15 BUN 100 H Creatinine 18.33 H Est GFR ( Amer) 3 L Glucose 118 H Calcium 9.3 Total Bilirubin 0.7 AST 41 Alkaline Phosphatase 30 L Total Protein 5.8 L Albumin 3.2 L 03/22/20 03/22/20 03/23/20 20:06 20:06 04:50 Creatine Kinase 608 H Troponin I 0.286 0.322 03/23/20 11:03 Creatine Kinase Troponin I 0.235 Impressions: Chest X-Ray 03/22/20 20:12 IMPRESSION: 1. No acute pulmonary findings. Chest CT 03/22/20 22:43 IMPRESSION: Multifocal nodular consolidative and groundglass opacity throughout both lungs, most pronounced throughout the left lower lobe. Overall, these lungs are most suspicious for multifocal pneumonia/viral pneumonitis. Short interval follow-up to clearing is recommended given the nodular configuration of several of the opacities (8-12 weeks). Tiny amount of pneumoperitoneum, indeterminate in etiology. Correlate for recent procedure. Otherwise, dedicated CT of the abdomen/pelvis is recommended as perforated viscus is in the differential. Small amount of upper abdominal ascites. Call report was generated for these findings. An addendum will be created once communication has been made. Assessment & Plan - Diagnosis (1) ESRD needing dialysis Is this a current diagnosis for this admission?: Yes Plan: In lieu of APD patient is doing manual exchanges while in the hospital.. We will continue the same 1.5% dianeal solution, 2500 fill volume every 5 hours. This seems to be working pretty good. (2) Acute respiratory failure with hypoxia Is this a current diagnosis for this admission?: Yes Plan: Currently requiring oxygen per nasal cannula only. (3) Pneumonia due to COVID-19 virus Is this a current diagnosis for this admission?: Yes Plan: Management per hospitalist. Currently on IV dexamethasone, azithromycin, vitamin C and given 2 doses of ivermectin. (4) Hypertension Qualifiers: Hypertension type: essential hypertension Qualified Code(s): I10 - Essential (primary) hypertension Is this a current diagnosis for this admission?: Yes Plan: Controlled. (5) Anemia in chronic kidney disease (CKD) Is this a current diagnosis for this admission?: Yes Plan: Controlled. Will give Retacrit as necessary.
[2020-03-27] MEDS: GABAPENTIN 100 MG CAPSULE PO SCH ×3 (05:27→21:28)
[2020-03-27] MEDS: HYDRALAZINE HCL 50 MG TABLET PO SCH ×3 (05:27→21:16)
[2020-03-27] MEDS: LABETALOL HCL 200 MG TABLET PO SCH ×3 (05:28→21:16)
[2020-03-27 07:29] LABS: ABSOLUTE LYMPHOCYTES (AUTO) 0.6 10^3/uL (0.5-4.7); ABSOLUTE MONOCYTES (AUTO) 0.4 10^3/uL (0.1-1.4); ABSOLUTE NEUT (AUTO) 7.5 10^3/uL (1.7-8.2); BASOPHILS % (AUTO) 0.3 % (0-2); EOSINOPHILS % (AUTO) 0.1 % (0-6); HEMATOCRIT 32.6 % (37.9-51.0); HEMOGLOBIN 10.5 g/dL (13.5-17.0); LYMPHOCYTES % (AUTO) 7.3 % (13-45); MEAN CORPUSCULAR HEMOGLOBIN 19.6 pg (27.0-33.4); MEAN CORPUSCULAR HGB CONC 32.1 g/dL (32.0-36.0); MEAN CORPUSCULAR VOLUME 61 fl (80-97); PLATELET COUNT 162 10^3/uL (150-450); RED BLOOD COUNT 5.35 10^6/uL (4.35-5.55); RED CELL DISTRIBUTION WIDTH 18.6 % (11.5-14.0); SEGMENTED NEUTROPHILS % (AUTO) 87.3 % (42-78); TOTAL CELLS COUNTED % (AUTO) 100 %; WHITE BLOOD COUNT 8.6 10^3/uL (4.0-10.5)
[2020-03-27 07:48] LABS: ALBUMIN 3.1 g/dL (3.5-5.0); ALKALINE PHOSPHATASE 30 U/L (38-126); ANION GAP 16 (5-19); ASPARTATE AMINO TRANSFERASE 42 U/L (17-59); BILIRUBIN,DIRECT 0.5 mg/dL (0.0-0.4); BILIRUBIN,TOTAL 0.7 mg/dL (0.2-1.3); BLOOD UREA NITROGEN 99 mg/dL (7-20); CALCIUM 9.1 mg/dL (8.4-10.2); CARBON DIOXIDE 25 mmol/L (22-30); CHLORIDE 91 mmol/L (98-107); GLUCOSE 110 mg/dL (75-110); TOTAL PROTEIN 5.6 g/dL (6.3-8.2)
[2020-03-27 07:50] LABS: POTASSIUM 3.6 mmol/L (3.6-5.0)
[2020-03-27 08:56] LABS: ANISOCYTOSIS 2+; HYPOCHROMASIA 1+; OVALOCYTES 1+; POIKILOCYTOSIS 1+
[2020-03-27 08:57] LABS: PLATELET COMMENT ADEQUATE; POLYCHROMASIA SLIGHT; SCHISTOCYTES SLIGHT; TEAR DROP CELLS 1+
[2020-03-27] MEDS: CYANOCOBALAMIN (VITAMIN B-12) 1,000 MCG TABLET PO SCH (09:16)
[2020-03-27] MEDS: CALCITRIOL 0.25 MCG CAPSULE PO SCH (09:16)
[2020-03-27] MEDS: FEBUXOSTAT 80 MG TABLET PO SCH (09:16)
[2020-03-27] MEDS: ASPIRIN 81 MG TABLET, CHEWABLE PO SCH (09:17)
[2020-03-27] MEDS: DEXAMETHASONE SOD PHOS INJ 10 MG/1 ML VIAL IV SCH (09:17)
[2020-03-27] MEDS: FLUOXETINE HCL 20 MG CAPSULE PO SCH (09:17)
[2020-03-27] MEDS: AZITHROMYCIN 250 MG TABLET PO SCH (09:17)
[2020-03-27] MEDS: ZINC SULFATE 220 MG CAPSULE PO SCH (09:17)
[2020-03-27] MEDS: FAMOTIDINE 20 MG TABLET PO SCH ×2 (09:17→21:28)
[2020-03-27] MEDS: ASCORBIC ACID 500 MG TABLET PO SCH ×2 (09:17→18:23)
[2020-03-27] MEDS: GENTAMICIN SULFATE 0.1% OINTMENT 15 GM TP SCH (09:18)
[2020-03-27] MEDS: AMLODIPINE BESYLATE 10 MG TABLET PO SCH (09:18)
[2020-03-27] MEDS: HEPARIN SOD (PORCINE) 5,000 UNIT/ML 1 ML VIAL SUBCUT SCH ×2 (09:18→21:27)
--- NOTE | 2020-03-27 10:53 | PDOC PROGRESS REPORT ---
Subjective Date:: 03/27/20 Subjective:: The patient is actually sleeping and snoring. No obvious apnea but highly suspicious for obstructive sleep apnea. Nurse reports that morning dialysis went well. Reason For Visit: ACUTE HYPOXIC, RESPIRATORY FAILURE, PNEUMONIA DUE Physical Exam Vital Signs: Temp Pulse Resp BP Pulse Ox 97.4 F 57 L 16 96/58 L 96 03/27/20 09:35 03/27/20 08:49 03/27/20 08:13 03/27/20 08:49 03/27/20 08:13 Intake & Output 03/26/20 03/27/20 03/28/20 06:59 06:59 06:59 Intake Total 02164 20322 2500 Output Total 49048 05699 2600 Balance -1950 -802 -100 Weight 102.2 kg 95.5 kg 98.6 kg General appearance: PRESENT: no acute distress, cooperative, well-developed, well-nourished Head exam: PRESENT: atraumatic, normocephalic Ear exam: PRESENT: normal external ear exam. ABSENT: bleeding, drainage Respiratory exam: PRESENT: clear to auscultation pato, symmetrical, unlabored. ABSENT: accessory muscle use, prolonged expiratory phas, rales, rhonchi, tachypnea, wheezes Cardiovascular exam: PRESENT: RRR, +S1, +S2. ABSENT: bradycardia, diastolic murmur, irregular rhythm, systolic murmur, tachycardia GI/Abdominal exam: PRESENT: normal bowel sounds, soft. ABSENT: tenderness Rectal exam: PRESENT: deferred Gentrourinary exam: ABSENT: indwelling catheter Extremities exam: ABSENT: pedal edema Musculoskeletal exam: PRESENT: ambulatory Neurological exam: PRESENT: alert - I just woke the patient so he is somewhat sleepy, awake, oriented to person, oriented to place, oriented to time, oriented to situation, CN II-XII grossly intact Psychiatric exam: PRESENT: appropriate affect. ABSENT: agitated, anxious Focused psych exam: ABSENT: delusional, paranoid, restlessness Results Laboratory Results: 03/27/20 06:55 03/27/20 06:55 03/27/20 03/27/20 06:55 06:55 WBC 8.6 RBC 5.35 Hgb 10.5 L Hct 32.6 L MCV 61 L MCH 19.6 L MCHC 32.1 RDW 18.6 H Plt Count 162 Seg Neutrophils % 87.3 H Sodium 131.9 L Potassium 3.6 Chloride 91 L Carbon Dioxide 25 Anion Gap 16 BUN 99 H Creatinine 18.34 H Est GFR ( Amer) 3 L Glucose 110 Calcium 9.1 Total Bilirubin 0.7 AST 42 Alkaline Phosphatase 30 L Total Protein 5.6 L Albumin 3.1 L 03/22/20 03/22/20 03/23/20 20:06 20:06 04:50 Creatine Kinase 608 H Troponin I 0.286 0.322 03/23/20 11:03 Creatine Kinase Troponin I 0.235 Impressions: Chest X-Ray 03/22/20 20:12 IMPRESSION: 1. No acute pulmonary findings. Chest CT 03/22/20 22:43 IMPRESSION: Multifocal nodular consolidative and groundglass opacity throughout both lungs, most pronounced throughout the left lower lobe. Overall, these lungs are most suspicious for multifocal pneumonia/viral pneumonitis. Short interval follow-up to clearing is recommended given the nodular configuration of several of the opacities (8-12 weeks). Tiny amount of pneumoperitoneum, indeterminate in etiology. Correlate for recent procedure. Otherwise, dedicated CT of the abdomen/pelvis is recommended as perforated viscus is in the differential. Small amount of upper abdominal ascites. Call report was generated for these findings. An addendum will be created once communication has been made. Assessment and Plan - Diagnosis (1) Pneumonia due to COVID-19 virus Is this a current diagnosis for this admission?: Yes (2) Acute respiratory failure with hypoxia Is this a current diagnosis for this admission?: Yes (3) Elevated troponin Is this a current diagnosis for this admission?: Yes (4) Hypertension Qualifiers: Hypertension type: essential hypertension Qualified Code(s): I10 - Essential (primary) hypertension Is this a current diagnosis for this admission?: Yes (5) Overweight (BMI 25.0-29.9) Is this a current diagnosis for this admission?: Yes (6) ESRD needing dialysis Is this a current diagnosis for this admission?: Yes - Plan Summary Summary: (1) Pneumonia due to COVID-19 virus Is this a current diagnosis for this admission?: Yes (2) Acute respiratory failure with hypoxia Is this a current diagnosis for this admission?: Yes (3) Elevated troponin Is this a current diagnosis for this admission?: Yes (4) Hypertension Qualifiers: Hypertension type: essential hypertension Qualified Code(s): I10 - Essential (primary) hypertension Is this a current diagnosis for this admission?: Yes (5) Overweight (BMI 25.0-29.9) Is this a current diagnosis for this admission?: Yes (6) ESRD needing dialysis Is this a current diagnosis for this admission?: Yes Was on room air for most of yesterday. However now he is currently on 1 L saturating in the low 90s. I was informed by the nurse that he did desaturate below 88% on room air today. He is however very comfortable. He will receive the second dose of his ivermectin tomorrow. He remains on Decadron. Continue vitamin and zinc supplements. He is receiving peritoneal dialysis today. We will try to wean back to room air if possible following dialysis. 03/25/2020 Acute respiratory failure with hypoxia-currently on 3 L nasal cannula. Multifactorial including the pneumonia as well as a net negative balance with his peritoneal dialysis yesterday. Pneumonia due to COVID-19 virus-continue current regimen. Received 2 doses of ivermectin. Is currently on steroids and supplements. Monitor closely. Adjust treatment plan as necessary. End-stage renal disease on peritoneal dialysis-the patient's dialysate fluid was changed to 2.5 today since he had an negative balance yesterday of over 1 L. Hopefully by switching the dialysis that he will have net positive output today. This could be affecting his breathing somewhat. We will wait and see how successful peritoneal dialysis is today before making any changes in his treatment plan. Elevated troponin-troponin is trending down. This is more likely related to his renal failure than true coronary disease. No symptoms of acute coronary syndrome. Continue to monitor. Hypertension-excellent blood pressure control on current regimen. No changes at this time. Overweight-encourage weight loss and exercise after patient recovers from COVID- 19 pneumonia. 03/26/2020 Respiratory failure with hypoxia-the patient did transiently require less oxygen but is back to 3 L nasal cannula. We will continue to monitor. His dialysis is in fact getting him into a net negative fluid balance and this may help. He does not have any known underlying COPD or asthma. Possible consideration would be oxygen at home. Pneumonia due to [id number] current regimen. Begin to wean steroids. End-stage renal disease-dialysis is now 5 times a day with a 1.5 solution. Continue to monitor intake and output. Elevated troponin-doubt true acute coronary syndrome. Trending down so no further monitoring. [id number] 03/27/2020 Respiratory failure with hypoxia from Covid pneumonia-ongoing requirement for oxygen supplementation. I have asked to have them tested patient see if he q ualifies for home oxygen. I believe the acute Covid pneumonia has resolved and this is post pneumonia chronic respiratory changes that will require home oxygen therapy. Spoke with nephrology. The patient is stable from a peritoneal dialysis standpoint. Once oxygen is arranged patient can discharge home. Elevated troponin-no longer trending troponins I have asked the nurse to encourage the patient to be out of bed. He should ambulate to the bathroom. He should try and ambulate around his room since he unfortunately is not able to walk in the hallways. - Time Time Spent with patient: 15-24 minutes Anticipated Discharge Disposition: Home with Home Health Anticipated Discharge Timeframe: within 72 hours
[2020-03-27] MEDS: ATORVASTATIN CALCIUM 40 MG TABLET PO SCH (21:27)
[2020-03-28] MEDS: LABETALOL HCL 200 MG TABLET PO SCH (05:32)
[2020-03-28] MEDS: GABAPENTIN 100 MG CAPSULE PO SCH (05:32)
[2020-03-28] MEDS: HYDRALAZINE HCL 50 MG TABLET PO SCH (05:32)
[2020-03-28 06:27] LABS: ABSOLUTE LYMPHOCYTES (AUTO) 0.6 10^3/uL (0.5-4.7); ABSOLUTE MONOCYTES (AUTO) 0.3 10^3/uL (0.1-1.4); ABSOLUTE NEUT (AUTO) 7.1 10^3/uL (1.7-8.2); BASOPHILS % (AUTO) 0.5 % (0-2); HEMATOCRIT 33.8 % (37.9-51.0); HEMOGLOBIN 10.6 g/dL (13.5-17.0); LYMPHOCYTES % (AUTO) 6.9 % (13-45); MEAN CORPUSCULAR HEMOGLOBIN 19.2 pg (27.0-33.4); MEAN CORPUSCULAR HGB CONC 31.4 g/dL (32.0-36.0); MEAN CORPUSCULAR VOLUME 61 fl (80-97); MONOCYTES % (AUTO) 4.3 % (3-13); PLATELET COUNT 165 10^3/uL (150-450); RED BLOOD COUNT 5.52 10^6/uL (4.35-5.55); RED CELL DISTRIBUTION WIDTH 17.8 % (11.5-14.0); SEGMENTED NEUTROPHILS % (AUTO) 88.3 % (42-78); TOTAL CELLS COUNTED % (AUTO) 100 %
[2020-03-28 06:40] LABS: ALBUMIN 3.3 g/dL (3.5-5.0); ALKALINE PHOSPHATASE 37 U/L (38-126); ANION GAP 15 (5-19); ASPARTATE AMINO TRANSFERASE 39 U/L (17-59); BILIRUBIN,DIRECT 0.5 mg/dL (0.0-0.4); BILIRUBIN,TOTAL 0.7 mg/dL (0.2-1.3); BLOOD UREA NITROGEN 103 mg/dL (7-20); CALCIUM 9.7 mg/dL (8.4-10.2); CARBON DIOXIDE 25 mmol/L (22-30); CHLORIDE 91 mmol/L (98-107); GLUCOSE 131 mg/dL (75-110); POTASSIUM 3.9 mmol/L (3.6-5.0); TOTAL PROTEIN 5.9 g/dL (6.3-8.2)
[2020-03-28 06:53] LABS: OVALOCYTES 1+; PLATELET CLUMPS PRESENT; PLATELET COMMENT ADEQUATE; POIKILOCYTOSIS 1+; TARGET CELLS SLIGHT
[2020-03-28] MEDS: ASCORBIC ACID 500 MG TABLET PO SCH (09:14)
[2020-03-28] MEDS: FAMOTIDINE 20 MG TABLET PO SCH (09:14)
[2020-03-28] MEDS: ZINC SULFATE 220 MG CAPSULE PO SCH (09:14)
[2020-03-28] MEDS: ASPIRIN 81 MG TABLET, CHEWABLE PO SCH (09:14)
[2020-03-28] MEDS: FLUOXETINE HCL 20 MG CAPSULE PO SCH (09:14)
[2020-03-28] MEDS: CYANOCOBALAMIN (VITAMIN B-12) 1,000 MCG TABLET PO SCH (09:14)
[2020-03-28] MEDS: AZITHROMYCIN 250 MG TABLET PO SCH (09:14)
[2020-03-28] MEDS: AMLODIPINE BESYLATE 10 MG TABLET PO SCH (09:15)
[2020-03-28] MEDS: DEXAMETHASONE SOD PHOS INJ 10 MG/1 ML VIAL IV SCH (09:15)
[2020-03-28] MEDS: HEPARIN SOD (PORCINE) 5,000 UNIT/ML 1 ML VIAL SUBCUT SCH (09:18)
[2020-03-28] MEDS: CALCITRIOL 0.25 MCG CAPSULE PO SCH (11:13)
[2020-03-28] MEDS: FEBUXOSTAT 80 MG TABLET PO SCH (11:14)
--- NOTE | 2020-03-28 13:20 | PDOC DISCHARGE SUMMARY ---
Impression - Admit/DC Date/PCP Admission Date/Primary Care Provider: 03/23/20 00:24 Simone CHERRY MD Discharge Date: 03/28/20 - Discharge Diagnosis (1) Pneumonia due to COVID-19 virus Is this a current diagnosis for this admission?: Yes (2) Acute respiratory failure with hypoxia Is this a current diagnosis for this admission?: Yes (3) Elevated troponin Is this a current diagnosis for this admission?: Yes (4) Hypertension Is this a current diagnosis for this admission?: Yes (5) Overweight (BMI 25.0-29.9) Is this a current diagnosis for this admission?: Yes (6) ESRD needing dialysis Is this a current diagnosis for this admission?: Yes - Assessment Summary: (1) Pneumonia due to COVID-19 virus Is this a current diagnosis for this admission?: Yes (2) Acute respiratory failure with hypoxia Is this a current diagnosis for this admission?: Yes (3) Elevated troponin Is this a current diagnosis for this admission?: Yes (4) Hypertension Qualifiers: Hypertension type: essential hypertension Qualified Code(s): I10 - Essential (primary) hypertension Is this a current diagnosis for this admission?: Yes (5) Overweight (BMI 25.0-29.9) Is this a current diagnosis for this admission?: Yes (6) ESRD needing dialysis Is this a current diagnosis for this admission?: Yes Was on room air for most of yesterday. However now he is currently on 1 L saturating in the low 90s. I was informed by the nurse that he did desaturate below 88% on room air today. He is however very comfortable. He will receive the second dose of his ivermectin tomorrow. He remains on Decadron. Continue vitamin and zinc supplements. He is receiving peritoneal dialysis today. We will try to wean back to room air if possible following dialysis. 03/25/2020 Acute respiratory failure with hypoxia-currently on 3 L nasal cannula. Multifactorial including the pneumonia as well as a net negative balance with his peritoneal dialysis yesterday. Pneumonia due to COVID-19 virus-continue current regimen. Received 2 doses of ivermectin. Is currently on steroids and supplements. Monitor closely. Adjust treatment plan as necessary. End-stage renal disease on peritoneal dialysis-the patient's dialysate fluid was changed to 2.5 today since he had an negative balance yesterday of over 1 L. Hopefully by switching the dialysis that he will have net positive output today. This could be affecting his breathing somewhat. We will wait and see how successful peritoneal dialysis is today before making any changes in his treatment plan. Elevated troponin-troponin is trending down. This is more likely related to his renal failure than true coronary disease. No symptoms of acute coronary syndrome. Continue to monitor. Hypertension-excellent blood pressure control on current regimen. No changes at this time. Overweight-encourage weight loss and exercise after patient recovers from COVID- 19 pneumonia. 03/26/2020 Respiratory failure with hypoxia-the patient did transiently require less oxygen but is back to 3 L nasal cannula. We will continue to monitor. His dialysis is in fact getting him into a net negative fluid balance and this may help. He does not have any known underlying COPD or asthma. Possible consideration would be oxygen at home. Pneumonia due to [id number] current regimen. Begin to wean steroids. End-stage renal disease-dialysis is now 5 times a day with a 1.5 solution. Continue to monitor intake and output. Elevated troponin-doubt true acute coronary syndrome. Trending down so no further monitoring. [id number] 03/27/2020 Respiratory failure with hypoxia from Covid pneumonia-ongoing requirement for oxygen supplementation. I have asked to have them tested patient see if he qualifies for home oxygen. I believe the acute Covid pneumonia has resolved and this is post pneumonia chronic respiratory changes that will require home oxygen therapy. Spoke with nephrology. The patient is stable from a peritoneal dialysis standpoint. Once oxygen is arranged patient can discharge home. Elevated troponin-no longer trending troponins I have asked the nurse to encourage the patient to be out of bed. He should ambulate to the bathroom. He should try and ambulate around his room since he unfortunately is not able to walk in the hallways. 03/28/2020 The patient just reports to me that he has CPAP at home but he never told us so CPAP was never ordered at night. He is stable for discharge. Walking oximetry on room air stayed above 90%. We did discuss the lack of energy and deconditioning and how this will affect him at home. We have ordered physical therapy to help with this and senior care to monitor his peritoneal dialysis catheter site as well as the ongoing dialysis. He will have follow-up appointments with nephrology and his primary care provider. - Additional Information Resuscitation Status: Full Code Discharge Diet: Cardiac, Other (Comments) - Renal Discharge Activity: Balance Activity w/Rest, Slowly Increase Activity Referrals: [facility],[place] [Other] (SPOKE WITH ENID AT [facility]. SHE STATED THE OFFICE WILL CALL PATIENT ON FRIDAY 03/31 TO SETUP AN APPT.) Prescriptions: Prednisone [Deltasone 10 mg Tablet] 10 mg PO ASDIR #21 tablet Atorvastatin Calcium [Lipitor 40 mg Tablet] 40 mg PO QHS 30 Days #30 tablet Home Medications: Amlodipine Besylate [Norvasc 10 mg Tablet] 10 mg PO DAILY 03/22/20 Aspirin [Aspirin 81 mg Chewable Tablet] 81 mg PO DAILY 03/22/20 Calcitriol 0.5 mcg PO DAILY 03/22/20 Cyanocobalamin (Vitamin B-12) [Vitamin B12] 2,500 mcg PO DAILY 03/22/20 Febuxostat 80 mg PO DAILY 03/22/20 Fluoxetine HCl 20 mg PO DAILY 03/22/20 Gabapentin [Neurontin 100 mg Capsule] 100 mg PO TID 03/22/20 Hydralazine HCl [Apresoline 50 mg Tablet] 50 mg PO TID 03/22/20 Labetalol HCl [Normodyne 200 mg Tablet] 200 mg PO TID 03/22/20 Ascorbic Acid [Vitamin C 500 mg Tablet] 500 mg PO BID tablet 03/28/20 Aspirin [Aspirin 81 mg Chewable Tablet] 81 mg PO DAILY tab.chew 03/28/20 Atorvastatin Calcium [Lipitor 40 mg Tablet] 40 mg PO QHS 30 Days #30 tablet 03/28/20 Calcitriol [Rocaltrol 0.25 mcg Capsule] 0.5 mcg PO DAILY capsule 03/28/20 Gabapentin [Neurontin 100 mg Capsule] 100 mg PO Q8 capsule 03/28/20 Gentamicin Sulfate [Garamycin 0.1% Ointment 15 gm] 1 applic TP DAILY tube 03/28/20 Hydralazine HCl [Apresoline 50 mg Tablet] 50 mg PO Q8 tablet 03/28/20 Labetalol HCl [Normodyne 200 mg Tablet] 200 mg PO Q8 tablet 03/28/20 Prednisone [Deltasone 10 mg Tablet] 10 mg PO ASDIR #21 tablet 03/28/20 Zinc Sulfate [Zinc-220 Capsule] 220 mg PO DAILY capsule 03/28/20 History of Present Illiness History of Present Illness: AMANDA HINOJOSA is a 59 year old male with a history of end-stage renal disease on peritoneal dialysis, hypertension, depression who presents to the ED with 5 days duration of generalized weakness, easy fatigability, fever and cough productive of blood-streaked sputum. Over the past 2 to 3 days he has been feeling increasingly short of breath. He states that his son tested positive for COVID-19 about a week ago and there starting to have the above symptoms he and his were tested for COVID-19 as outpatient and his tested positive while his test came back negative. Despite having a negative test result he continues to experience symptoms and today when the shortness of breath got really worse he called EMS and was brought in for further evaluation. During transport via EMS patient tested positive with a rapid kit. He denies any chest pain, palpitation, dizziness, nausea, vomiting, abdominal pain or diarrhea. He states that he has been compliant with his dialysis schedule. At the ED ABG showed hypoxemia PO2 of 60%, troponin was elevated at 0.286, EKG had no significant changes. CT the chest showed multifocal groundglass opacities bilaterally concerning for possible viral pneumonia. Patient was initially to be managed at the ED until availability of nephrology service to start him on peritoneal dialysis while inpatient. ED was able to touch base with nephrology and order was placed by Dr. Cherry for initiation of peritoneal dialysis so patient is accepted to [facility] for management of acute hypoxic respiratory failure from COVID-19 pneumonia and will continue having peritoneal dialysis per nephrology order. Hospital Course Hospital Course: Slow recovery from Covid pneumonia. Peritoneal dialysis improved. See above for details. Physical Exam Vital Signs: Temp Pulse Resp BP Pulse Ox 97.4 F 49 L 17 153/82 H 94 03/28/20 11:21 03/28/20 11:21 03/28/20 11:21 03/28/20 11:21 03/28/20 11:21 Intake & Output 03/27/20 03/28/20 03/29/20 06:59 06:59 06:59 Intake Total 99777 16242 2500 Output Total 79732 63948 2800 Balance -802 -20 -300 Weight 95.5 kg 96.1 kg General appearance: PRESENT: no acute distress, cooperative, well-developed Head exam: PRESENT: atraumatic, normocephalic Eye exam: PRESENT: conjunctiva pink. ABSENT: scleral icterus Ear exam: PRESENT: normal external ear exam. ABSENT: bleeding, drainage Respiratory exam: PRESENT: clear to auscultation pato, symmetrical, unlabored. ABSENT: prolonged expiratory phas, rales, rhonchi, tachypnea, wheezes Cardiovascular exam: PRESENT: RRR, +S1, +S2. ABSENT: bradycardia, diastolic murmur, irregular rhythm, systolic murmur, tachycardia GI/Abdominal exam: PRESENT: normal bowel sounds, soft, other - Peritoneal dialysis catheter in place. ABSENT: distended, guarding, tenderness Rectal exam: PRESENT: deferred Gentrourinary exam: ABSENT: indwelling catheter Extremities exam: ABSENT: pedal edema Musculoskeletal exam: PRESENT: ambulatory, normal inspection. ABSENT: deformity, dislocation Neurological exam: PRESENT: alert, awake, oriented to person, oriented to place, oriented to time, oriented to situation, CN II-XII grossly intact. ABSENT: altered, motor sensory deficit Psychiatric exam: PRESENT: appropriate affect, normal mood - Very happy that he will be going home today. ABSENT: agitated, anxious Focused psych exam: ABSENT: delusional, paranoid, restlessness Skin exam: PRESENT: dry, normal color, warm. ABSENT: rash Results Laboratory Results: WBC 8.0 10^3/uL (4.0-10.5) 03/28/20 05:25 RBC 5.52 10^6/uL (4.35-5.55) 03/28/20 05:25 Hgb 10.6 g/dL (13.5-17.0) L 03/28/20 05:25 Hct 33.8 % (37.9-51.0) L 03/28/20 05:25 MCV 61 fl (80-97) L 03/28/20 05:25 MCH 19.2 pg (27.0-33.4) L 03/28/20 05:25 MCHC 31.4 g/dL (32.0-36.0) L 03/28/20 05:25 RDW 17.8 % (11.5-14.0) H 03/28/20 05:25 Plt Count 165 10^3/uL (150-450) 03/28/20 05:25 Lymph % (Auto) 6.9 % (13-45) L 03/28/20 05:25 [place] % (Auto) 4.3 % (3-13) 03/28/20 05:25 Eos % (Auto) 0.0 % (0-6) 03/28/20 05:25 Baso % (Auto) 0.5 % (0-2) 03/28/20 05:25 Absolute Neuts (auto) 7.1 10^3/uL (1.7-8.2) 03/28/20 05:25 Absolute Lymphs (auto) 0.6 10^3/uL (0.5-4.7) 03/28/20 05:25 Absolute Monos (auto) 0.3 10^3/uL (0.1-1.4) 03/28/20 05:25 Absolute Eos (auto) 0.0 10^3/uL (0.0-0.6) 03/28/20 05:25 Absolute Basos (auto) 0.0 10^3/uL (0.0-0.2) 03/28/20 05:25 Total Counted 100 03/26/20 06:21 Seg Neutrophils % 88.3 % (42-78) H 03/28/20 05:25 Seg Neuts % (Manual) 91 % (42-78) H 03/26/20 06:21 Band Neutrophils % 2 % (3-5) L 03/25/20 05:51 Lymphocytes % (Manual) 2 % (13-45) L 03/26/20 06:21 Atypical Lymphs % 2 % (0) 03/26/20 06:21 Monocytes % (Manual) 5 % (3-13) 03/26/20 06:21 Eosinophils % (Manual) 0 % (0-6) 03/26/20 06:21 Basophils % (Manual) 0 % (0-2) 03/26/20 06:21 Abs Neuts (Manual) 10.2 10^3/uL (1.7-8.2) H 03/26/20 06:21 Abs Lymphs (Manual) 0.4 10^3/uL (0.5-4.7) L 03/26/20 06:21 Abs Monocytes (Manual) 0.6 10^3/uL (0.1-1.4) 03/26/20 06:21 Absolute Eos (Manual) 0.0 10^3/uL (0.0-0.6) 03/26/20 06:21 Abs Basophils (Manual) 0.0 10^3/uL (0.0-0.2) 03/26/20 06:21 Clumped Platelets PRESENT 03/28/20 05:25 Platelet Comment ADEQUATE 03/28/20 05:25 Polychromasia SLIGHT 03/27/20 06:55 Hypochromasia 1+ 03/27/20 06:55 Poikilocytosis 1+ 03/28/20 05:25 Anisocytosis 2+ 03/27/20 06:55 Microcytosis 1+ 03/28/20 05:25 Target Cells SLIGHT 03/28/20 05:25 Tear Drop Cells 1+ 03/27/20 06:55 Ovalocytes 1+ 03/28/20 05:25 Acanthocytes (Spur) SLIGHT 03/27/20 06:55 Schistocytes SLIGHT 03/27/20 06:55 D-Dimer 0.95 ug/mL (0.00-0.50) H 03/24/20 06:39 Carbonic Acid 1.12 mmol/L (1.05-1.35) 03/22/20 22:48 HCO3/H2CO3 Ratio 21:1 03/22/20 22:48 ABG pH 7.43 (7.35-7.45) 03/22/20 22:48 ABG pCO2 37.1 mmHg (35-45) 03/22/20 22:48 ABG pO2 60.8 mmHg (80-100) L 03/22/20 22:48 ABG HCO3 24.2 mmol/L (20-24) H 03/22/20 22:48 ABG Total CO2 25.3 mmol/L (23-27) 03/22/20 22:48 ABG O2 Saturation 92.1 % (94-98) L 03/22/20 22:48 ABG Base Excess 0.1 mmol/L 03/22/20 22:48 FiO2 ROOM AIR 03/22/20 22:48 Sodium 131.1 mmol/L (137-145) L 03/28/20 05:25 Potassium 3.9 mmol/L (3.6-5.0) 03/28/20 05:25 Chloride 91 mmol/L (98-107) L 03/28/20 05:25 Carbon Dioxide 25 mmol/L (22-30) 03/28/20 05:25 Anion Gap 15 (5-19) 03/28/20 05:25 BUN 103 mg/dL (7-20) H 03/28/20 05:25 Creatinine 18.61 mg/dL (0.52-1.25) H 03/28/20 05:25 Est GFR ( Amer) 3 (>60) L 03/28/20 05:25 Est GFR (MDRD) Non-Af 3 (>60) L 03/28/20 05:25 Glucose 131 mg/dL (75-110) H 03/28/20 05:25 Lactic Acid 0.6 mmol/L (0.7-2.1) L 03/23/20 00:46 Calcium 9.7 mg/dL (8.4-10.2) 03/28/20 05:25 Ferritin 1270.00 ng/mL (17.9-464.0) H 03/23/20 04:50 Total Bilirubin 0.7 mg/dL (0.2-1.3) 03/28/20 05:25 Direct Bilirubin 0.5 mg/dL (0.0-0.4) H 03/28/20 05:25 Neonat Total Bilirubin Not Reportable 03/28/20 05:25 Neonat Direct Bilirubin Not Reportable 03/28/20 05:25 Neonat Indirect Bili Not Reportable 03/28/20 05:25 AST 39 U/L (17-59) 03/28/20 05:25 ALT 25 U/L (<50) 03/28/20 05:25 Alkaline Phosphatase 37 U/L (38-126) L 03/28/20 05:25 Lactate Dehydrogenase 338 U/L (120-246) H 03/23/20 04:50 Creatine Kinase 608 U/L (55-170) H 03/22/20 20:06 Troponin I 0.235 ng/mL 03/23/20 11:03 C-Reactive Protein 39.2 mg/L (<10.0) H 03/23/20 04:50 Total Protein 5.9 g/dL (6.3-8.2) L 03/28/20 05:25 Albumin 3.3 g/dL (3.5-5.0) L 03/28/20 05:25 Urine Color YELLOW 03/22/20 21:12 Urine Appearance SLIGHTLY-CLOUDY 03/22/20 21:12 Urine pH 6.0 (5.0-9.0) 03/22/20 21:12 Ur Specific Waucoma 1.014 03/22/20 21:12 Urine Protein 100 mg/dL (NEGATIVE) H 03/22/20 21:12 Urine Glucose (UA) NEGATIVE mg/dL (NEGATIVE) 03/22/20 21:12 Urine Ketones NEGATIVE mg/dL (NEGATIVE) 03/22/20 21:12 Urine Blood MODERATE (NEGATIVE) H 03/22/20 21:12 Urine Nitrite NEGATIVE (NEGATIVE) 03/22/20 21:12 Urine Bilirubin NEGATIVE (NEGATIVE) 03/22/20 21:12 Urine Urobilinogen NEGATIVE mg/dL (<2.0) 03/22/20 21:12 Ur Leukocyte Esterase NEGATIVE (NEGATIVE) 03/22/20 21:12 Urine WBC (Auto) 1 /HPF 03/22/20 21:12 Urine RBC (Auto) 15 /HPF 03/22/20 21:12 Urine Bacteria (Auto) TRACE /HPF 03/22/20 21:12 Squamous Epi Cells Auto <1 /HPF 03/22/20 21:12 Urine Ascorbic Acid NEGATIVE (NEGATIVE) 03/22/20 21:12 Brandin Human Metapneumo PCR NOT DETECTED (NOT DETECT) 03/22/20 23:30 Adenovirus (PCR) NOT DETECTED (NOT DETECT) 03/22/20 23:30 B. pertussis DNA (PCR) NOT DETECTED (NOT DETECT) 03/22/20 23:30 B.parapertussis DNA PCR NOT DETECTED (NOT DETECT) 03/22/20 23:30 C. pneumoniae DNA (PCR) NOT DETECTED (NOT DETECT) 03/22/20 23:30 Coronavirus OC43 (PCR) NOT DETECTED (NOT DETECT) 03/22/20 23:30 Coronavirus HKU1 (PCR) NOT DETECTED (NOT DETECT) 03/22/20 23:30 Coronavirus 229E (PCR) NOT DETECTED (NOT DETECT) 03/22/20 23:30 Coronavirus NL63 (PCR) NOT DETECTED (NOT DETECT) 03/22/20 23:30 Influenza A (H1) PCR NOT DETECTED (NOT DETECT) 03/22/20 23:30 Influ A (H1N1/09) PCR NOT DETECTED (NOT DETECT) 03/22/20 23:30 Influenza A (H3) PCR NOT DETECTED (NOT DETECT) 03/22/20 23:30 Influenza Type A (PCR) NOT DETECTED (NOT DETECT) 03/22/20 23:30 Influenza Type B (PCR) NOT DETECTED (NOT DETECT) 03/22/20 23:30 M. pneumoniae (PCR) NOT DETECTED (NOT DETECT) 03/22/20 23:30 Parainfluenza 1 (PCR) NOT DETECTED (NOT DETECT) 03/22/20 23:30 Parainfluenza 2 (PCR) NOT DETECTED (NOT DETECT) 03/22/20 23:30 Parainfluenza 3 (PCR) NOT DETECTED (NOT DETECT) 03/22/20 23:30 Parainfluenza 4 (PCR) NOT DETECTED (NOT DETECT) 03/22/20 23:30 RSV (PCR) NOT DETECTED (NOT DETECT) 03/22/20 23:30 Entero/Rhino (PCR) NOT DETECTED (NOT DETECT) 03/22/20 23:30 SARS-CoV-2 (PCR) DETECTED (NOT DETECT) H 03/22/20 23:30 03/22/20 03/23/20 03/23/20 20:06 04:50 11:03 Troponin I 0.286 0.322 0.235 Impressions: Chest X-Ray 03/22/20 20:12 IMPRESSION: 1. No acute pulmonary findings. Chest CT 03/22/20 22:43 IMPRESSION: Multifocal nodular consolidative and groundglass opacity throughout both lungs, most pronounced throughout the left lower lobe. Overall, these lungs are most suspicious for multifocal pneumonia/viral pneumonitis. Short interval follow-up to clearing is recommended given the nodular configuration of several of the opacities (8-12 weeks). Tiny amount of pneumoperitoneum, indeterminate in etiology. Correlate for recent procedure. Otherwise, dedicated CT of the abdomen/pelvis is recommended as perforated viscus is in the differential. Small amount of upper abdominal ascites. Call report was generated for these findings. An addendum will be created once communication has been made. Plan Health Concerns: Hemodialysis patient with pneumonia secondary to coronavirus Hypoxic respiratory failure that was slow to resolve Plan of Treatment: Home health to monitor progress with dialysis and conversion back to his continuous dialysis. Monitor his use of CPAP. Monitor his peritoneal dialysis catheter site. It was slightly irritated when he was admitted. Goals: Complete recovery from coronavirus Time Spent: Greater than 30 Minutes Stroke Is this a Stroke Patient?: No Acute Heart Failure Is this a Heart Failure Patient?: No
[2020-03-28 13:57] VITALS: BP 159/87
== END 2020-03-28 15:15 | disposition home health service (06) | DRG 177 ==
LOC: ER 19:48 → EH 03-23 00:24 → 3S 03-23 05:39 → 4S 03-23 18:58
PROVIDERS: ADMIT Student in an Organized Health Care Education/Training Program; ATTEND Hospitalist
DX: U07.1 COVID-19 (principal); J96.01 Acute respiratory failure with hypoxia; J12.82 Pneumonia due to coronavirus disease 2019; N18.6 End stage renal disease; I21.A1 Myocardial infarction type 2; I12.0 Hypertensive chronic kidney disease with stage 5 chronic kidney disease or end stage renal disease; E66.3 Overweight; F32.9 Major depressive disorder, single episode, unspecified; D63.1 Anemia in chronic kidney disease; M10.9 Gout, unspecified; E78.5 Hyperlipidemia, unspecified; Z79.82 Long term (current) use of aspirin; Z79.899 Other long term (current) drug therapy; Z79.52 Long term (current) use of systemic steroids; Z87.891 Personal history of nicotine dependence; Z82.49 Family history of ischemic heart disease and other diseases of the circulatory system
CPT/HCPCS: 36415; 71045; 71250; 80053; 81001; 82550; 82728; 82803; 83605; 83615; 84484; 85025; 85379; 86140; 87040; 90945; 93005; 93010; 94799; 99285; 0202U; C9803; J1100; J1644; J3490